=== PATIENT | male | born 1950 | race Caucasian/White ===

== ENCOUNTER 2016-08-16 06:13 | Inpatient (IN) ==
[2016-08-09 13:08] LABS: Appearance,Urine CLEAR; Bilirubin,Urine NEG (NEG); Color,Urine YELLOW; Glucose,Urine (UA) 150 mg/dL (NEG); Leukocyte Esterase,Urine NEG /uL (NEG); Nitrate,Urine NEG (NEG); Protein,Urine NEG (NEG); Specific Gravity,Urine 1.023 (1.000-1.035); Urine Blood NEG mg/dL (<0.03); Urobilinogen,Urine NEG (NEG)
[2016-08-09 15:26] LABS: Basophils # (Auto) 0.1 K/mcL (0.0-0.3); Basophils % (Auto) 0.6 % (0.0-2.0); Eosinophils # (Auto) 0.6 K/mcL (0.0-0.7); Eosinophils % (Auto) 5.8 % (0.0-7.0); Granulocytes % (Auto) 70.2 % (38.0-78.0); Lymphocytes # (Auto) 1.8 K/mcL (1.5-4.8); Lymphocytes % (Auto) 18.9 % (15.5-49.0); Mean Cell Volume 95.6 fL (80.0-100.0); Mean Corpuscular HGB Conc 32.2 g/dL (31.0-36.0); Mean Corpuscular Hemoglobin 30.8 pg (26.0-34.0); Monocytes # (Auto) 0.4 K/mcL (0.1-0.9); Monocytes % (Auto) 4.5 % (1.0-9.0); Platelet Count 311 K/mcL (140-440); Red Cell Distribution Width 13.9 % (11.5-14.5)
[2016-08-09 15:34] LABS: ALT/SGPT 15 U/l (0-40); Albumin 4.3 gm/dL (3.2-5.2); Alkaline Phosphatase 38 U/L (39-117); Blood Urea Nitrogen 15 mg/dl (8-23)
[~2016-08-16 06:13] MED LIST: ceFAZolin 1 GM VIAL IV SCH
[2016-08-16] MEDS ORDERED: IPRATROPIUM/ALBUTEROL 3 ML AMPUL.NEB NEB ONE (07:27)
[2016-08-16] MEDS ORDERED: SUCCINYLCHOLINE 20 MG/ML ML IV ONE (07:45)
[2016-08-16] MEDS ORDERED: GLYCOPYRROLATE 0.2 MG/ML VIAL IV ONE (07:45)
[2016-08-16] MEDS ORDERED: NALOXONE HCL 0.4 MG/ML VIAL IV ONE (07:45)
[2016-08-16] MEDS ORDERED: PHENYLEPHRINE 10 MG/ML VIAL IV ONE (07:45)
[2016-08-16] MEDS ORDERED: fentaNYL 250 MCG/5 ML VIAL IV ONE (07:45)
[2016-08-16] MEDS ORDERED: PROPOFOL 200 MG/20 ML VIAL IV ONE (07:45)
[2016-08-16] MEDS ORDERED: NEOSTIGMINE 1 MG/ML VIAL IV ONE (07:45)
[2016-08-16] MEDS ORDERED: DEXAMETHASONE 10 MG/ML VIAL IV ONE (07:45)
[2016-08-16] MEDS ORDERED: ONDANSETRON 4 MG/2 ML VIAL IV ONE (07:45)
[2016-08-16] MEDS ORDERED: MIDAZOLAM 5 MG/5 ML VIAL IV ONE (07:45)
[2016-08-16] MEDS ORDERED: LIDOCAINE HCL/PF 100 MG/5 ML SYRINGE IV ONE (07:45)
[2016-08-16] MEDS ORDERED: HYDROmorphone 2 MG/ML SYRINGE IV ONE (07:45)
[2016-08-16] MEDS ORDERED: KETAMINE 100 MG/ML ML IV ONE (07:45)
[2016-08-16] MEDS ORDERED: GELATIN SPONGE,ABSORBABLE 1 GM POWDER TOPICAL ONE (08:12)
[2016-08-16] MEDS ORDERED: THROMBIN (BOVINE) 5,000 UNIT VIAL TOPICAL ONE (08:12)
[2016-08-16] MEDS ORDERED: GELATIN SPONGE,ABSORBABLE 1 EACH SPONGE TOPICAL ONE (08:12)
[2016-08-16] MEDS ORDERED: diphenhydrAMINE 50 MG/ML VIAL IV PRN (09:15)
[2016-08-16] MEDS ORDERED: FLUMAZENIL 0.1 MG/ML ML IV PRN (09:15)
[2016-08-16] MEDS ORDERED: IPRATROPIUM/ALBUTEROL 3 ML AMPUL.NEB NEB PRN (09:15)
[2016-08-16] MEDS ORDERED: NALOXONE HCL 0.4 MG/ML VIAL IV PRN ×2 (09:15→14:54)
[2016-08-16] MEDS ORDERED: METHOCARBAMOL 1,000 MG/10 ML VIAL IV PRN (09:15)
[2016-08-16] MEDS ORDERED: LACTATED RINGERS 250 ML IV PRN (09:15)
[2016-08-16] MEDS ORDERED: BENZOCAINE/MENTHOL 1 LOZENGE PO PRN (09:15)
[2016-08-16] MEDS ORDERED: ONDANSETRON 4 MG/2 ML VIAL IV PRN ×2 (09:15→14:54)
[2016-08-16] MEDS ORDERED: MEPERIDINE 25 MG/ML SYRINGE IV PRN (09:15)
[2016-08-16] MEDS ORDERED: PROMETHAZINE 25 MG/ML VIAL IV PRN ×2 (09:15→14:54)
[2016-08-16] MEDS ORDERED: ePHEDrine 50 MG/ML AMPUL IV PRN (09:15)
[2016-08-16] MEDS ORDERED: LACTATED RINGERS 1,000 ML IV SCH (09:15)
[2016-08-16] MEDS ORDERED: METOCLOPRAMIDE 10 MG/2 ML VIAL IV PRN (09:15)
[2016-08-16] MEDS ORDERED: GUM MASTIC/STORAX/MSAL/ALCOHOL 1 DOSE DROPERETTE TOPICAL ONE (09:50)
[2016-08-16] MEDS ORDERED: BUPIVACAINE 0.25% 50 ML VIAL IJ ONE (10:08)
[2016-08-16] MEDS ORDERED: HYDROcodone/APAP 10/325MG TABLET PO PRN (10:09)
[2016-08-16] MEDS ORDERED: TRANEXAMIC ACID 1,000 MG/10 ML VIAL IV ONE (10:09)
[2016-08-16] MEDS: fentaNYL 100 MCG/2 ML VIAL IV PRN ×4 (11:10→11:30)
[2016-08-16] MEDS: HYDROmorphone 2 MG/ML SYRINGE IV PRN ×4 (11:15→11:49)
[2016-08-16] MEDS ORDERED: ACETAMINOPHEN 1,000 MG/100 ML BOTTLE IV ONE (12:05)
--- NOTE | 2016-08-16 12:39 | Brief Operative Note ---
Date of procedure: 08/16/16 Pre-op diagnosis: stenosis with disc herniation Post-op diagnosis: same Procedure: decompression l4/5 plus far lateral discectomy Grafts/Implants: No Anesthesia: GETA Findings: herniation extraforaminal Complications: none Surgeon: Gerald Kenyon Purse Seiner: Sheldon Bravo Estimated blood loss (cc): 30 Specimens Removed/Pathology: none sent Condition: stable Disposition: PACU
--- NOTE | 2016-08-16 13:41 | XRay Report ---
CLINICAL INFORMATION: Hypoxia COMPARISON: 10/29/2010 FINDINGS: Heart size, mediastinum and pulmonary vessels are normal. Few tiny densely calcified granulomas in the perihilar region seen - as before. There are no significant pulmonary abnormality - only minor atelectasis in the left base IMPRESSION: No acute disease Interpreted and Authenticated by: Joshua Rondon 08/16/16
[2016-08-16] MEDS ORDERED: 0.9 % SODIUM CHLORIDE 10 ML SYRINGE IV SCH ×2 (14:00→22:00)
[2016-08-16] MEDS ORDERED: ACETAMINOPHEN 325 MG TABLET PO PRN (14:54)
[2016-08-16] MEDS ORDERED: FLEETS ADULT ENEMA PR PRN (14:54)
[2016-08-16] MEDS ORDERED: HYDROmorphone 2 MG/ML SYRINGE IV PRN (14:54)
[2016-08-16] MEDS ORDERED: SENNOSIDES 1 TABLET PO PRN (14:54)
[2016-08-16] MEDS ORDERED: DEXTROSE 50% 50 ML VIAL IV PRN (15:05)
[2016-08-16] MEDS ORDERED: AZITHROMYCIN 250 MG TABLET PO ONE (15:05)
--- NOTE | 2016-08-16 15:46 | Internal Med History&Physical ---
Medical - H&P: HPI Patient information: Note initiated : 08/16/16 at 3:43 pm Service Date, if different from initiated Date: [] Patient: Subhash Mccormack 65 y/o M admitted on 08/16/16 for L4-5 Central Decompression Possible Far Lateral. Chief Complaint: [] History of present illness: Mr. Mccormack is a 65 year old male with h/o dm, copd, htn, hld, bph, chr back pain, was having a lower back surgery today. l4,l5 lamenctomy for disc prolapse. After the procedure, the patient was a difficult extubation, after extubation the patient contined to be short of breath, wheezing. and needed BIPAP support, the patient had a Blood gas drawn which shwed acute respiratory acidosis. Medicine was there fore asked to evaluate the patient for further management. The patient on my eval was on bipap, improving mentation, but still short of breath. He was on 15/8 setting, good staturations, and having good tidal volues. The patient notes the he is a smoker, takes spiriva and uses albuterol 2 times a week, no recent hospitalization or use of steroids for copd. He was in his usual state of health before the procedure. EKG done reviewed, unchanged from previous X ray chest reviewed, no gross infiltrated noted. ABG/ serial abgs reviewed, - Constitutional Constitutional: Absent: chills, fatigue, fever(s) - EENT Eyes: Absent: change in vision, diplopia Nose, mouth and throat: Absent: disequilibrium, vertigo - Cardiovascular Cardiovascular: Absent: chest pain, palpatations, syncope - Respiratory Respiratory: Present: dyspnea, dyspnea on exertion, wheezing - Gastrointestinal Gastrointestinal: Absent: abdominal pain, nausea, vomiting - Genitourinary Genitourinary: Absent: difficulty urinating, hematuria - Musculoskeletal Musculoskeletal: Present: back pain - Neurological Neurological: Absent: focal weakness, headache(s), vertigo, weakness - Psychiatric Psychiatric: Present: confusion. Absent: anxiety - Endocrine Endocrine: Absent: polydipsia, polyphagia, polyuria - Hematologic/Lymphatic Hematologic/Lymphatic: Absent: easy bleeding, easy bruising - Allergic/Immunologic Allergic/Immunologic: Present: wheezing. Absent: lip swelling Medical - H&P: PMH Medical history: Medical History Spinal stenosis at L4-L5 level (Acute) DM, HTN, HLD< BPH, chr pain, copd, neuropathy Surgical history: Medical History Spinal stenosis at L4-L5 level (Acute) right knee arthroscopy Pertinent family history: h/o clots, hemophilia, cad, cancer in father mother has rheumatoid arthritis, htn, dm, cad Social history: smoker social etoh no recreational drugs lives at home.retired. Medical - H&P: Meds Home Medications Medication Instructions Recorded Confirmed Type Coq10 100 mg PO BID 04/03/16 08/09/16 History Doxycycline Hyclate [Vibramycin] 100 mg PO BID 04/03/16 08/09/16 History Fenofibrate,Micronized 134 mg PO DAILY 04/03/16 08/09/16 History [Fenofibrate] Finasteride [Proscar] 5 mg PO DAILY 04/03/16 08/09/16 History Fish Oil 1 tab PO BID 04/03/16 08/09/16 History Lisinopril [Zestril] 5 mg PO DAILY 04/03/16 08/09/16 History Mecobal/Levomefolat Ca/B6 Phos 2 tablet PO DAILY 04/03/16 08/09/16 History [Foltanx Tablet] Omeprazole [PriLOSEC] 20 mg PO ACB 04/03/16 08/09/16 History Oxybutynin Chloride [Ditropan Xl] 10 mg PO DAILY 04/03/16 08/09/16 History Simvastatin [Zocor] 40 mg PO HS 04/03/16 08/09/16 History Tadalafil [Cialis] 5 mg PO DAILY 04/03/16 08/09/16 History Tiotropium [place] [Spiriva] 18 mcg INH DAILY 04/03/16 08/16/16 History metFORMIN [Glucophage] 500 mg PO BID 04/03/16 08/09/16 History HYDROcodone/ACETAMINOPHEN 1 each PO Q4-6HP PRN 08/09/16 08/09/16 History [Hydrocodon-Acetaminophn 10-325] Methocarbamol [Robaxin] 750 mg PO TID 08/09/16 08/09/16 History Pregabalin [Lyrica] 75 mg PO BID 08/09/16 08/09/16 History Vitamin D3 5,000 unit PO DAILY 08/09/16 08/09/16 History Allergies Allergy/AdvReac Type Severity Reaction Status Date / Time povidone-iodine Allergy Intermediate Rash Verified 08/09/16 10:02 [From Betadine] soap [From Betadine] Allergy Intermediate Rash Verified 08/09/16 10:02 Medical - H&P: Exam - Constitutional Vitals: Temp Pulse Resp BP Pulse Ox 97.6 F 98 H 19 133/70 97 08/16/16 15:00 08/16/16 15:01 08/16/16 15:01 08/16/16 15:00 08/16/16 15:01 General appearance: cooperative, mild distress, obese - Head Head exam: Present: atraumatic, normal inspection, normocephalic - Eye Eye exam: Present: PERRL. Absent: periorbital swelling, periorbital tenderness , scleral icterus - ENT ENT exam: Present: mucous membranes dry - Neck Neck exam: Present: normal inspection - Respiratory Respiratory exam: Present: respiratory distress (mild), wheezes. Absent: accessory muscle use - Cardiovascular Cardiovascular exam: Present: normal rate and rhythm, +S1, +S2 - GI/Abdominal GI/Abdominal exam: Present: normal bowel sounds, soft. Absent: firm, guarding, rigid, tenderness - Extremities Exam Extremities exam: Present: Foot pink and warm. Absent: pedal edema - Back Exam Additional comments: lower back in dressing, rest normal to inspection - Neurological Exam Neurological exam: Present: alert, CN II-XII intact, oriented X3. Absent: motor sensory deficit - Psychiatric Psychiatric exam: Absent: agitated, anxious - Skin Skin exam: Present: intact. Absent: rash, urticaria Medical - H&P: Reslt - Labs CBC & Chem 7: 08/09/16 10:41 08/09/16 10:41 Medical - H&P: A/P (1) Acute respiratory failure with hypoxia and hypercapnia Current visit: Yes Status: Acute (2) Chronic obstructive asthma with exacerbation Current visit: Yes Status: Acute (3) Diabetes mellitus Current visit: Yes Status: Acute (4) Essential hypertension Current visit: Yes Status: Acute (5) BPH (benign prostatic hyperplasia) Current visit: Yes Status: Acute (6) Chronic pain Current visit: Yes Status: Acute (7) Hyperlipidemia Current visit: Yes Status: Acute - Narrative A/P Narrative: this is a 65 yr male who was in otherwise good health, had copd flare up with acute hypoxic and hypercapenic respiratory failure after a surgical procedure. The patient likely over reacted to some inhalant used during surgery or some medication. Patient will be treated with bipap for now, if does not respond will intubate the patient, but it seems that the patient is slowly improving. IV steroids, po zithromax, DUonebx q 4 hrs for now, X ray is neg, ekg unchanged , ABG in 1 hr to determine progress. COtinue home meds, hold metformin for now, use sliding scale isulin Diet diabetic DVT scd for now given recent spine surgery. Code full Dispo- anticipate home d/c once acute flare up resolved Condition, critical Time spent with the patient 1 hr reviewing chart and coordinating care, managed bipap, abg, labs, total critical care time spent 40 mins.
[2016-08-16] MEDS: methylPREDNISolone SOD SUCC 125 MG/2 ML VIAL IV SCH ×2 (15:47→20:36)
[2016-08-16 15:55] LABS: Mean Cell Volume 96.2 fL (80.0-100.0); Mean Corpuscular HGB Conc 31.4 g/dL (31.0-36.0); Mean Corpuscular Hemoglobin 30.2 pg (26.0-34.0); Platelet Count 303 K/mcL (140-440); RBC 5.11 M/mcL (4.50-5.90); Red Cell Distribution Width 13.4 % (11.5-14.5)
--- NOTE | 2016-08-16 16:03 | XRay Report ---
CLINICAL INFORMATION: Lumbar decompression - localization COMPARISON: Lumbar spine CT from 04/03/2016. FINDINGS: AP and lateral digital images are submitted. Lateral images show metallic probe overlying the inferior L4 facet at approximately the L4-5 disc level. AP view shows metallic probe overlying the right L4-5 disc level IMPRESSION: Metallic probe overlying the L4-5 disc level Interpreted and Authenticated by: Joshua Rondon 08/16/16
[2016-08-16] MEDS: IPRATROPIUM/ALBUTEROL 3 ML AMPUL.NEB NEB SCH ×3 (16:06→22:44)
[2016-08-16 16:17] LABS: ALT/SGPT 19 U/l (0-40); Albumin 4.2 gm/dL (3.2-5.2); Albumin/Globulin Ratio 1.5 (1.0-2.3); Alkaline Phosphatase 38 U/L (39-117); Bilirubin,Direct < 0.2 mg/dL (0.0-0.3); Blood Urea Nitrogen 16 mg/dl (8-23); Gamma Glutamyl Transpeptidase 26 U/L (8-61); Magnesium 1.9 mg/dL (1.6-2.5); Phosphorous 4.6 mg/dL (2.7-4.5); Uric Acid 5.7 mg/dL (2.5-8.0)
[2016-08-16 16:43] LABS: Lymphocytes % 6 % (15-49); Monocytes % (Manual) 1 % (1-9); Platelet Estimate NORMAL (NORMAL); RBC Morphology B (NORMAL); Segmented Neutrophils % 93 % (38-78)
[2016-08-16] MEDS: INSULIN LISPRO 1 UNIT/0.01 ML UNIT SQ SCH ×2 (17:33→20:35)
[2016-08-16] MEDS: HYDROcodone/APAP 10/325MG TABLET PO PRN ×2 (18:56→22:28)
[2016-08-16] MEDS ORDERED: HYDROcodone/APAP 10/325MG TABLET PO ONE (19:08)
[2016-08-16] MEDS: PREGABALIN 75 MG CAPSULE PO SCH (20:35)
[2016-08-16] MEDS: SIMVASTATIN 40 MG TABLET PO SCH (20:35)
[2016-08-16] MEDS: FAMOTIDINE/PF 20 MG/2 ML VIAL IV SCH (20:36)
[2016-08-16] MEDS: 0.9 % SODIUM CHLORIDE 10 ML SYRINGE IV SCH (20:36)
[2016-08-16] MEDS: CHLORHEXIDINE GLUCONATE 1 ML ORAL.SOL SWABMOUTH SCH (20:36)
[2016-08-17] MEDS: IPRATROPIUM/ALBUTEROL 3 ML AMPUL.NEB NEB SCH ×6 (02:42→23:09)
[2016-08-17] MEDS: HYDROcodone/APAP 10/325MG TABLET PO PRN ×4 (02:42→22:59)
[2016-08-17] MEDS: methylPREDNISolone SOD SUCC 125 MG/2 ML VIAL IV SCH ×3 (05:01→21:57)
[2016-08-17] MEDS: 0.9 % SODIUM CHLORIDE 10 ML SYRINGE IV SCH ×3 (05:01→22:00)
[2016-08-17] MEDS: INSULIN LISPRO 1 UNIT/0.01 ML UNIT SQ SCH ×4 (07:07→21:56)
[2016-08-17 07:32] LABS: Basophils # (Auto) 0 K/mcL (0.0-0.3); Basophils % (Auto) 0.1 % (0.0-2.0); Eosinophils # (Auto) 0 K/mcL (0.0-0.7); Eosinophils % (Auto) 0 % (0.0-7.0); Granulocytes % (Auto) 87.9 % (38.0-78.0); Lymphocytes # (Auto) 1.1 K/mcL (1.5-4.8); Lymphocytes % (Auto) 8.2 % (15.5-49.0); Mean Cell Volume 96.1 fL (80.0-100.0); Mean Corpuscular Hemoglobin 30.7 pg (26.0-34.0); Monocytes # (Auto) 0.5 K/mcL (0.1-0.9); Monocytes % (Auto) 3.8 % (1.0-9.0); Platelet Count 293 K/mcL (140-440); Red Cell Distribution Width 13.3 % (11.5-14.5)
--- NOTE | 2016-08-17 07:49 | Orthopedic Progress Note ---
Subjective Patient information: Note initiated : 08/17/16 at 7:47 am Service Date, if different from initiated Date: [] Patient: Subhash Mccormack 65 y/o M admitted on 08/16/16 for L4-5 Central Decompression Possible Far Lateral. Chief Complaint: [] Principal diagnosis: lumbar stenosis Objective Vital signs: Vital Signs Temp Pulse Pulse Resp BP BP Pulse Ox 08/17/16 07:20 79 13 08/17/16 07:00 97.8 F 77 14 114/60 94 08/17/16 06:33 77 08/17/16 06:00 97.8 F 89 20 108/49 94 08/17/16 05:00 92 H 20 124/71 84 L 08/17/16 04:00 97.9 F 90 16 132/68 93 08/17/16 03:00 83 13 124/59 08/17/16 02:00 83 14 121/56 95 08/17/16 01:00 90 88 15 113/51 93 08/17/16 00:00 97.8 F 101 H 19 113/60 97 08/16/16 23:00 91 H 14 127/69 08/16/16 22:46 88 16 08/16/16 22:00 93 H 20 124/62 93 08/16/16 21:00 99 H 24 131/72 08/16/16 20:00 97.9 F 106 H 20 132/72 94 08/16/16 19:31 88 20 08/16/16 19:00 20 122/72 94 08/16/16 18:00 106 H 20 93 08/16/16 17:00 89 16 127/68 96 08/16/16 16:19 98 H 12 97 08/16/16 16:08 94 H 11 L 08/16/16 16:00 97.9 F 93 H 16 124/78 97 08/16/16 15:01 98 H 19 97 08/16/16 15:00 97.6 F 98 H 133/70 93 08/16/16 14:45 96.9 F L 12 134/78 97 08/16/16 14:13 98.0 F 99 H 15 134/75 94 08/16/16 13:55 101 H 16 137/78 96 08/16/16 13:42 101 H 14 135/71 95 08/16/16 13:30 96 H 12 140/70 95 08/16/16 13:27 101 H 12 95 08/16/16 13:21 102 H 14 143/67 95 08/16/16 13:06 100 H 16 152/82 93 08/16/16 12:50 103 H 13 145/74 95 08/16/16 12:48 104 H 21 96 08/16/16 12:40 103 H 16 159/88 95 08/16/16 12:30 102 H 10 L 159/88 98 08/16/16 12:20 99 H 15 162/80 99 08/16/16 12:10 100 H 14 178/75 82 L 08/16/16 12:05 103 H 105 H 18 169/52 83 L 08/16/16 12:00 98.0 F 106 H 18 144/67 81 L 08/16/16 11:56 98.0 F 105 H 16 141/70 92 08/16/16 11:43 105 H 15 145/76 92 08/16/16 11:39 105 H 16 143/77 94 08/16/16 11:38 103 H 20 144/76 92 08/16/16 11:22 103 H 19 120/73 94 08/16/16 11:15 104 H 18 152/66 96 08/16/16 11:10 108 H 23 140/84 94 08/16/16 11:05 108 H 15 118/63 96 08/16/16 11:01 97.3 F L 25 L 25 H 156/69 93 Intake and Output 08/16/16 08/17/16 08/17/16 21:59 05:59 13:59 Intake Total 940 / 940 Output Total 1075 / 1075 600 / 600 300 / 300 Balance -135 / -135 -600 / -600 -300 / -300 Intake: Oral 940 / 940 Output: Void Amount 1075 / 1075 600 / 600 300 / 300 Other: Meal Dinner Percent of Meal Consumed 100% Feeding Ability Assist with Tray Set Up Weight 256 lb 11.2 oz Intake & Output: Intake & Output 08/16/16 08/17/16 08/17/16 21:59 05:59 13:59 Intake Total 940 / 940 Output Total 1075 / 1075 600 / 600 300 / 300 Balance -135 / -135 -600 / -600 -300 / -300 Weight 256 lb 11.2 oz Intake: Oral 940 / 940 Output: Void Amount 1075 / 1075 600 / 600 300 / 300 Other: Meal Dinner Percent of Meal Consumed 100% Feeding Ability Assist with Tray Set Up Incision: Yes clean and dry Dressing: Yes intact Weight bearing status: as tolerated Neurological exam IM: Yes neurovascular intact - Labs CBC & BMP: 08/17/16 06:20 08/16/16 15:10 Labs: Orthopedic Labs 08/09/16 10:41 PT 12.4 INR 0.9 08/17/16 08/16/16 08/09/16 06:20 15:10 10:41 Hgb 14.8 15.4 15.4 Hct 46.1 49.2 47.8 Assessment and Plan (1) Spinal stenosis at L4-L5 level complicated by respiratory difficulty D/C when respiratory problems resolved D/C drain today Status: Acute
[2016-08-17 08:11] LABS: ALT/SGPT 17 U/l (0-40); Albumin 4.1 gm/dL (3.2-5.2); Albumin/Globulin Ratio 1.9 (1.0-2.3); Alkaline Phosphatase 35 U/L (39-117); Bilirubin,Direct < 0.2 mg/dL (0.0-0.3); Blood Urea Nitrogen 16 mg/dl (8-23); Gamma Glutamyl Transpeptidase 25 U/L (8-61); Phosphorous 3.3 mg/dL (2.7-4.5)
--- NOTE | 2016-08-17 09:18 | Operative Note ---
DATE OF OPERATION: 08/16/2016 PREOPERATIVE DIAGNOSIS: Lumbar stenosis L4-L5 with also an extruded fragment in extraforaminal region L4-L5. POSTOPERATIVE DIAGNOSIS: Lumbar stenosis L4-L5 with also an extruded fragment in extraforaminal region L4-L5. OPERATION PROPOSED: 1. Lumbar decompression with decompression, lateral recess, and opening of the neural foramen as well as the central canal at L4-L5. 2. Extraforaminal diskectomy L4-L5 through a second surgical approach. OPERATION PERFORMED: Right hip hemiarthroplasty. OPERATING SURGEON: Gerald Kenyon MD [employer]ENDING [employer]IVITIES SUPERVISOR: Sheldon Bravo PA-C INDICATIONS: A gentleman who has had intractable radicular pain. He has failed conservative measures and we have elected to proceed with a lumbar decompression. We have also elected to excise a foraminal disc herniation as well. OPERATION IN DETAIL: Informed consent was obtained. He was taken to the operating room and he was provided with appropriate anesthetic and prophylactic antibiotics. A midline incision was made. I dissected down along the spinous process and lamina of L4 and L5. I placed a self-retaining retractor. I then under fluoroscopic guidance advanced a tubular retractor through a separate incision to the extra foraminal region L4-L5. The position of our dissectors and retractors was confirmed under fluoroscopy. I then used a high speed bur. I removed the anterior one half of the spinous process and lamina of L4 and superior portion leaving the edge of L5 using a high speed bur, a variety of curettes and Kerrison punches. I debrided ligamentum flavum and carried this distraction across the midline. At the end of the decompression, the central canal, lateral recess, and opening of the neural foramen were very adequately patent. I then turned my attention to this extraforaminal diskectomy. A separate incision and separate ____ had been placed. I brought in the operating microscope and I curetted beneath the part of articularis of L4 and then along the transverse process of L5 and the superior articular process of L5. I used a Kerrison punch to debride a small amount of lateral bone. I worked my way from them going over the transverse process and this thin membrane was debrided. I mobilized the nerve root cephalad and laterally. There was significant herniated material that was identified and removed. The wounds were irrigated thoroughly at the end of the decompression. Central canal at the opening of the neural foramen seemed very adequately patent. The wounds were irrigated thoroughly. I closed with 0 Vicryl in interrupted fashion, 2-0 Vicryl inverted deep dermal, and running subcuticular. No complications of the procedure. Estimated blood loss 50 mL. GDD:cyndie Job ID: [id number] Doc ID: [id number] Gerald Kenyon MD
[2016-08-17] MEDS: B6 PHOS PO SCH (09:21)
[2016-08-17] MEDS: MECOBAL PO SCH (09:21)
[2016-08-17] MEDS: LEVOMEFOLAT CA PO SCH (09:21)
[2016-08-17] MEDS: CHLORHEXIDINE GLUCONATE 1 ML ORAL.SOL SWABMOUTH SCH ×2 (09:23→21:57)
[2016-08-17] MEDS: FAMOTIDINE/PF 20 MG/2 ML VIAL IV SCH ×2 (09:26→21:57)
[2016-08-17] MEDS: AZITHROMYCIN 250 MG TABLET PO SCH (09:26)
[2016-08-17] MEDS: PREGABALIN 75 MG CAPSULE PO SCH ×2 (09:39→22:59)
[2016-08-17] MEDS: FENOFIBRATE 43 MG CAPSULE PO SCH (09:39)
[2016-08-17] MEDS: LISINOPRIL 5 MG TABLET PO SCH (09:39)
[2016-08-17] MEDS: CELECOXIB 200 MG CAPSULE PO SCH ×2 (09:39→22:59)
[2016-08-17] MEDS: FINASTERIDE 5 MG TABLET PO SCH (09:39)
[2016-08-17] MEDS: OXYBUTYNIN CHLORIDE 5 MG TAB.XL.24H PO SCH (09:39)
--- NOTE | 2016-08-17 12:15 | Internal Med Progress Note ---
Medical - PN: Subj Patient information: Note initiated : 08/17/16 at 12:12 pm Service Date, if different from initiated Date: [] Patient: Subhash Mccormack 65 y/o M admitted on 08/16/16 for L4-5 Central Decompression Possible Far Lateral. Chief Complaint: [] Interval history: The patient seen examined, overnight events noted no acute complaints pain ok now, but needed q 4 pain meds overnight. Ok to use celebrex as per Neuro surgery if needed. Patient was on bipap till 3 am then transitioned to nasal canula, had done since then ABG this morning showed normal Ph and acidosis resolved. Pertinent ROS: Denies headache, dizziness Denies chest pain, palpitations Denies cough or shortness of breath Denies abdominal pain, nausea or vomiting. - Constitutional Vitals: Vital Signs Temp Pulse Resp BP Pulse Ox 98.1 F 84 12 120/67 92 08/17/16 09:00 08/17/16 11:15 08/17/16 11:15 08/17/16 11:00 08/17/16 11:00 Period Temp Pulse Resp BP Sys/[place]erc[place] Pulse Ox Last 24 Hr 96.9 F-98.1 F 77-106 10-24 108-162/49-88 84-99 Intake and Output 08/16/16 08/17/16 08/17/16 21:59 05:59 13:59 Intake Total 940 / 940 809 / 809 Output Total 1075 / 1075 600 / 600 718 / 718 Balance -135 / -135 -600 / -600 Weight 256 lb 11.2 oz Intake & Output: Intake & Output 08/16/16 08/17/16 08/17/16 21:59 05:59 13:59 Intake Total 940 / 940 809 / 809 Output Total 1075 / 1075 600 / 600 718 / 718 Balance -135 / -135 -600 / -600 91 / 91 Weight 256 lb 11.2 oz Intake: IV 449 / 449 Oral 940 / 940 360 / 360 Output: Drainage 18 / 18 Lower Back 18 Void Amount 1075 / 1075 600 / 600 700 / 700 Other: Meal Dinner Breakfast Percent of Meal Consumed 100% 100% Feeding Ability Assist with Tray Set Up Independent Exam: Constitutional; Afebrile, cooperative, alert, not in distress. Eyes- No icterus, Pupils equal, reactive, No periorbital swelling Ears- Ext ear normal, hearing normal to conversation. Neck- Midline trachea, supple Respiratory system: Air Entry equal on both sides, No crackles, prolonged exp phase, no wheezing. CVS- Rate rhythm regular, S1,S2 heard, no gallop, no rub. Abdomen- Soft nontender abdomen, no organomegaly, no tenderness, no guarding or rigidity, [employer]- AOOx3, moving all extremities, no focal deficit noted. Medical - PN: Obj Da - Labs CBC & Chem 7: 08/17/16 06:20 08/17/16 06:20 Labs: Abnormal Lab Results 08/17/16 08/17/16 08/16/16 06:20 06:20 15:10 WBC 13.4 H Gran % 87.9 H Lymph % (Auto) 8.2 L Gran # 11.8 H Lymph # 1.1 L Seg Neutrophils % Lymphocytes % Glucose 155 H 153 H Phosphorus 4.6 H Alkaline Phosphatase 35 L 38 L Triglycerides 159 H 168 H 08/16/16 15:10 WBC 12.6 H Gran % Lymph % (Auto) Gran # Lymph # Seg Neutrophils % 93 H Lymphocytes % 6 L Glucose Phosphorus Alkaline Phosphatase Triglycerides Meds: Medications Acetaminophen (Tylenol) 650 mg PO Q4-6HP PRN PRN Reason: PAIN/FEVER > 101 Acetaminophen/Hydrocodone Bitart ([place] 10/325mg) 1 tab PO Q4-6HP PRN PRN Reason: Pain Last Admin: 08/17/16 07:00 Dose: 1 tab Albuterol/Ipratropium (Duoneb) 3 ml NEB Q4HRT [facility] Last Admin: 08/17/16 11:14 Dose: 3 ml Azithromycin (Zithromax) 250 mg PO DAILY [facility] Stop: 08/20/16 09:01 Last Admin: 08/17/16 09:26 Dose: 250 mg Celecoxib (Celebrex) 200 mg PO BID [facility] Last Admin: 08/17/16 09:39 Dose: 200 mg Chlorhexidine Gluconate (Peridex) 15 ml [place]OUTH BID [facility] Last Admin: 08/17/16 09:23 Dose: 15 ml Dextrose (Dextrose 50%) 0 ml IV UD PRN PRN Reason: Hypoglycemia Diagnostic Test (Pha) (Accu-Chek) 1 each FS ACHS [facility] Last Admin: 08/17/16 12:02 Dose: 1 each Famotidine (Pepcid) 20 mg IV Q12 [facility] Last Admin: 08/17/16 09:26 Dose: 20 mg Fenofibrate (Antara) 129 mg PO DAILY [facility] Last Admin: 08/17/16 09:39 Dose: 129 mg Finasteride (Proscar) 5 mg PO DAILY [facility] Last Admin: 08/17/16 09:39 Dose: 5 mg Heparin Sodium (Porcine) (Heparin) 5,000 unit SQ Q12 [facility] Insulin Human Lispro (Humalog) 0 unit SQ [facility] PRN Reason: Protocol Last Admin: 08/17/16 07:07 Dose: 1 unit Lisinopril (Zestril) 5 mg PO DAILY [facility] Last Admin: 08/17/16 09:39 Dose: 5 mg Methylprednisolone Sodium Succinate (Solu-Medrol) 62.5 mg IV Q8 [facility] Last Admin: 08/17/16 05:01 Dose: 62.5 mg Naloxone HCl (Narcan) 0.1 mg IV Q2MIN PRN PRN Reason: Opiate Reversal Ondansetron HCl (Zofran) 4 mg IV Q4-6HP PRN PRN Reason: Nausea And Vomiting Oxybutynin Chloride (Ditropan Xl) 10 mg PO DAILY [facility] Last Admin: 08/17/16 09:39 Dose: 10 mg Mecobal/Levomefolat Ca/B6 Phos [Foltanx Tablet] Tabs 2 dose PO DAILY [facility] Last Admin: 08/17/16 09:21 Dose: Not Given Pregabalin (Lyrica) 75 mg PO BID [facility] Last Admin: 08/17/16 09:39 Dose: 75 mg Promethazine HCl (Phenergan) 12.5 mg IV Q4-6HP PRN PRN Reason: Nausea And Vomiting Senna (Senokot) 2 tab PO HSP PRN PRN Reason: Constipation Simvastatin (Zocor) 40 mg PO HS [facility] Last Admin: 08/16/16 20:35 Dose: 40 mg Sodium Biphosphate/Sodium Phosphate (Fleets Adult) 1 dose AR Q3-4DAYS PRN PRN Reason: Constipation Sodium Chloride (Saline Flush) 10 ml IV Q8 [facility] Last Admin: 08/17/16 12:02 Dose: 10 ml Medical - PN: A/P - Time Spent With Patient Total time spent is greater than 50% in coordination of care (as documented) at patient's floor/unit and/or counseling patient: (1) Acute respiratory failure with hypoxia and hypercapnia Status: Acute Current Visit: Yes (2) Chronic obstructive asthma with exacerbation Status: Acute Current Visit: Yes (3) Diabetes mellitus Status: Acute Current Visit: Yes (4) Essential hypertension Status: Acute Current Visit: Yes (5) Chronic pain Status: Acute Current Visit: Yes - Narrative A/P Narrative: -The patient is doing well presently on 2 L nc continue same -BIPAP stand by, CPAP at night for his IVAN - Continue dunoebs, steroids and abx for now - if remains stable, can be d/c home tomorrow in AM. - OK to transfer to med surg status this evening if patient remains stable with stable oxygen requirements and low risk of relapse. He will still need to continue his home cpap at night. DVT hep sq starting later today, SCD Ok to d/c as per neurosurgery. . Medical - PN: Qual - VTE Deep Vein Thrombosis/Pulmonary Embolism Present on Admission: Yes
[2016-08-17] MEDS: HEPARIN 5,000 UNIT/ML VIAL SQ SCH (21:57)
[2016-08-17] MEDS: SIMVASTATIN 40 MG TABLET PO SCH (22:59)
[2016-08-18] MEDS: IPRATROPIUM/ALBUTEROL 3 ML AMPUL.NEB NEB SCH ×6 (03:31→23:23)
[2016-08-18] MEDS: methylPREDNISolone SOD SUCC 125 MG/2 ML VIAL IV SCH (05:42)
[2016-08-18] MEDS: HYDROcodone/APAP 10/325MG TABLET PO PRN (05:43)
[2016-08-18] MEDS: 0.9 % SODIUM CHLORIDE 10 ML SYRINGE IV SCH ×3 (05:43→22:22)
[2016-08-18 06:01] LABS: Basophils # (Auto) 0 K/mcL (0.0-0.3); Basophils % (Auto) 0.1 % (0.0-2.0); Eosinophils # (Auto) 0.1 K/mcL (0.0-0.7); Eosinophils % (Auto) 0.3 % (0.0-7.0); Granulocytes % (Auto) 91.2 % (38.0-78.0); Lymphocytes # (Auto) 1.1 K/mcL (1.5-4.8); Lymphocytes % (Auto) 6.5 % (15.5-49.0); Mean Cell Volume 95.3 fL (80.0-100.0); Mean Corpuscular HGB Conc 31.8 g/dL (31.0-36.0); Mean Corpuscular Hemoglobin 30.3 pg (26.0-34.0); Monocytes # (Auto) 0.3 K/mcL (0.1-0.9); Monocytes % (Auto) 1.9 % (1.0-9.0); Platelet Count 310 K/mcL (140-440); RBC 4.72 M/mcL (4.50-5.90); Red Cell Distribution Width 13.6 % (11.5-14.5)
[2016-08-18 06:17] LABS: ALT/SGPT 14 U/l (0-40); Albumin 4.2 gm/dL (3.2-5.2); Alkaline Phosphatase 35 U/L (39-117); Bilirubin,Direct < 0.2 mg/dL (0.0-0.3); Blood Urea Nitrogen 31 mg/dl (8-23); Gamma Glutamyl Transpeptidase 24 U/L (8-61); Magnesium 2.2 mg/dL (1.6-2.5); Phosphorous 2.9 mg/dL (2.7-4.5); Uric Acid 5.1 mg/dL (2.5-8.0)
[2016-08-18] MEDS: INSULIN LISPRO 1 UNIT/0.01 ML UNIT SQ SCH ×4 (07:24→21:35)
[2016-08-18] MEDS: MECOBAL PO SCH (07:25)
[2016-08-18] MEDS: B6 PHOS PO SCH (07:25)
[2016-08-18] MEDS: LEVOMEFOLAT CA PO SCH (07:25)
[2016-08-18] MEDS: FINASTERIDE 5 MG TABLET PO SCH (07:36)
[2016-08-18] MEDS: FENOFIBRATE 43 MG CAPSULE PO SCH (07:36)
[2016-08-18] MEDS: HEPARIN 5,000 UNIT/ML VIAL SQ SCH ×2 (07:36→21:30)
[2016-08-18] MEDS: FAMOTIDINE/PF 20 MG/2 ML VIAL IV SCH ×2 (07:36→21:30)
[2016-08-18] MEDS: CELECOXIB 200 MG CAPSULE PO SCH (07:37)
[2016-08-18] MEDS: PREGABALIN 75 MG CAPSULE PO SCH ×2 (07:37→22:22)
[2016-08-18] MEDS: AZITHROMYCIN 250 MG TABLET PO SCH (07:37)
[2016-08-18] MEDS: OXYBUTYNIN CHLORIDE 5 MG TAB.XL.24H PO SCH (07:37)
[2016-08-18] MEDS: LISINOPRIL 5 MG TABLET PO SCH (07:37)
[2016-08-18] MEDS: CHLORHEXIDINE GLUCONATE 1 ML ORAL.SOL SWABMOUTH SCH ×2 (07:38→21:31)
[2016-08-18] MEDS ORDERED: predniSONE 20 MG TABLET PO ONE (08:20)
[2016-08-18] MEDS ORDERED: HYDROcodone/APAP 10/325MG TABLET PO PRN (09:04)
[2016-08-18] MEDS ORDERED: ACETAMINOPHEN 325 MG TABLET PO PRN (09:04)
[2016-08-18] MEDS ORDERED: SENNOSIDES 1 TABLET PO PRN (09:04)
[2016-08-18] MEDS ORDERED: DEXTROSE 50% 50 ML VIAL IV PRN (09:04)
[2016-08-18] MEDS ORDERED: FLEETS ADULT ENEMA PR PRN (09:04)
[2016-08-18] MEDS ORDERED: ONDANSETRON 4 MG/2 ML VIAL IV PRN (09:04)
[2016-08-18] MEDS ORDERED: NALOXONE HCL 0.4 MG/ML VIAL IV PRN (09:04)
[2016-08-18] MEDS ORDERED: PROMETHAZINE 25 MG/ML VIAL IV PRN (09:04)
--- NOTE | 2016-08-18 09:46 | XRay Report ---
CLINICAL INFORMATION: Increased white blood cell count COMPARISON: 08/16/2016 FINDINGS: Heart size, mediastinum and pulmonary vessels are normal. The lungs are clear. No effusions. Bones soft tissues are normal IMPRESSION: Normal Interpreted and Authenticated by: Joshua Rondon 08/18/16
--- NOTE | 2016-08-18 10:10 | Internal Med Progress Note ---
Medical - PN: Subj Patient information: Note initiated : 08/18/16 at 10:05 am Service Date, if different from initiated Date: [] Patient: Subhash Mccormack 65 y/o M admitted on 08/16/16 for L4-5 Central Decompression Possible Far Lateral. Chief Complaint: [] Interval history: 08/16-Mr. Mccormack is a 65 year old male with h/o dm, copd, htn, hld, bph, chr back pain, was having a lower back surgery today. l4,l5 lamenctomy for disc prolapse. After the procedure, the patient was a difficult extubation, after extubation the patient contined to be short of breath, wheezing. and needed BIPAP support, the patient had a Blood gas drawn which shwed acute respiratory acidosis. Medicine was there fore asked to evaluate the patient for further management. The patient on my eval was on bipap, improving mentation, but still short of breath. He was on 15/8 setting, good staturations, and having good tidal volues. The patient notes the he is a smoker, takes spiriva and uses albuterol 2 times a week, no recent hospitalization or use of steroids for copd. He was in his usual state of health before the procedure. 08/18- patient doing a lot better. Off BiPAP. On room air. Sitting in chair. No active concerns per staff or patient. No overnight events. White count up from 13.4-16.8. Repeat chest imaging unremarkable. Transfer to telemetry. transition to oral steroids. Possible discharge in 24 hours - Constitutional Vitals: Vital Signs Temp Pulse Resp BP Pulse Ox 98.4 F 109 H 21 154/79 91 08/18/16 08:00 08/18/16 08:00 08/18/16 08:00 08/18/16 08:00 08/18/16 08:00 Period Temp Pulse Resp BP Sys/Mercado Pulse Ox Last 24 Hr 97.5 F-99.2 F 78-109 12-24 90-154/43-98 88-97 Intake and Output 08/17/16 08/18/16 08/18/16 21:59 05:59 13:59 Intake Total 450 / 450 150 / 150 150 / 150 Output Total 450 / 450 625 / 625 Balance 0 / 0 -475 / -475 150 / 150 Weight 247 lb 9.6 oz Intake & Output: Intake & Output 08/17/16 08/18/16 08/18/16 21:59 05:59 13:59 Intake Total 450 / 450 150 / 150 150 / 150 Output Total 450 / 450 625 / 625 Balance 0 / 0 -475 / -475 150 / 150 Weight 247 lb 9.6 oz Intake: Oral 450 / 450 150 / 150 150 / 150 Output: Void Amount 450 / 450 625 / 625 Other: Meal Dinner Percent of Meal Consumed 100% Feeding Ability Assist with Tray Set Up # Bowel Movements 0 General appearance: cooperative, no acute distress Medical - PN: Obj Da - Labs CBC & Chem 7: 08/18/16 04:15 08/18/16 04:15 Labs: Abnormal Lab Results 08/18/16 08/18/16 08/17/16 04:15 04:15 06:20 WBC 16.8 H Gran % 91.2 H Lymph % (Auto) 6.5 L Gran # 15.3 H Lymph # 1.1 L Seg Neutrophils % Lymphocytes % BUN 31 H Glucose 146 H 155 H Phosphorus Alkaline Phosphatase 35 L 35 L Globulin 2.1 L Triglycerides 159 H 08/17/16 08/16/16 08/16/16 06:20 15:10 15:10 WBC 13.4 H 12.6 H Gran % 87.9 H Lymph % (Auto) 8.2 L Gran # 11.8 H Lymph # 1.1 L Seg Neutrophils % 93 H Lymphocytes % 6 L BUN Glucose 153 H Phosphorus 4.6 H Alkaline Phosphatase 38 L Globulin Triglycerides 168 H Meds: Medications Acetaminophen (Tylenol) 650 mg PO Q4-6HP PRN PRN Reason: PAIN/FEVER > 101 Acetaminophen/Hydrocodone Bitart ([place] 10/325mg) 1 tab PO Q4-6HP PRN PRN Reason: Pain Albuterol/Ipratropium (Duoneb) 3 ml NEB Q4HRT [facility] Azithromycin (Zithromax) 250 mg PO DAILY [facility] Stop: 08/20/16 09:01 Celecoxib (Celebrex) 200 mg PO BID [facility] Chlorhexidine Gluconate (Peridex) 15 ml SWABMOUTH BID [facility] Dextrose (Dextrose 50%) 0 ml IV UD PRN PRN Reason: Hypoglycemia Diagnostic Test (Pha) (Accu-Chek) 1 each FS ACHS [facility] Famotidine (Pepcid) 20 mg IV Q12 [facility] Fenofibrate (Antara) 129 mg PO DAILY [facility] Finasteride (Proscar) 5 mg PO DAILY [facility] Heparin Sodium (Porcine) (Heparin) 5,000 unit SQ Q12 [facility] Insulin Human Lispro (Humalog) 0 unit SQ ACHS [facility] PRN Reason: Protocol Lisinopril (Zestril) 5 mg PO DAILY [facility] Naloxone HCl (Narcan) 0.1 mg IV Q2MIN PRN PRN Reason: Opiate Reversal Ondansetron HCl (Zofran) 4 mg IV Q4-6HP PRN PRN Reason: Nausea And Vomiting Oxybutynin Chloride (Ditropan Xl) 10 mg PO DAILY [facility] Patient Own Medication () 2 dose PO DAILY [facility] Prednisone (Prednisone) 40 mg PO QAMCC [facility] Pregabalin (Lyrica) 75 mg PO BID [facility] Promethazine HCl (Phenergan) 12.5 mg IV Q4-6HP PRN PRN Reason: Nausea And Vomiting Senna (Senokot) 2 tab PO HSP PRN PRN Reason: Constipation Simvastatin (Zocor) 40 mg PO HS [facility] Sodium Biphosphate/Sodium Phosphate (Fleets Adult) 1 dose ND Q3-4DAYS PRN PRN Reason: Constipation Sodium Chloride (Saline Flush) 10 ml IV Q8 [facility] Medical - PN: A/P - Time Spent With Patient Total time spent is greater than 50% in coordination of care (as documented) at patient's floor/unit and/or counseling patient: 15 - 24 minutes (1) Acute respiratory failure with hypoxia and hypercapnia Status: Acute Assessment and plan: * Acute hypoxic hypercapnic respiratory failure- clinically improved. Off noninvasive ventilation * Systemic inflammatory response syndrome-clinically improving. Uptrending white count likely symptoms steroids. Negative interval chest imaging. negative cultures to date. Afebrile. persistent tachycardia * COPD exacerbation-managed per guidelines. Continue oral steroids/ bronchodilators.continue home CPAP * postop day 3 L4-L5 laminectomy- clear for discharge by surgery. postoperative care as per surgery recommendations * DM type II-on sliding scale insulin * neuropathy on Lyrica * Hyperlipidemia statin * Hypertension lisinopril plan * Possible discharge in 24 hours * Pre-existing medical condition management as above * transfer to telemetry Current Visit: Yes Medical - PN: Qual - VTE Deep Vein Thrombosis/Pulmonary Embolism Present on Admission: Yes
[2016-08-18] MEDS ORDERED: CELECOXIB 200 MG CAPSULE PO SCH (21:00)
[2016-08-18] MEDS ORDERED: SIMVASTATIN 40 MG TABLET PO SCH (21:00)
[2016-08-19] MEDS: IPRATROPIUM/ALBUTEROL 3 ML AMPUL.NEB NEB SCH ×2 (02:33→07:04)
[2016-08-19 05:46] LABS: Basophils # (Auto) 0 K/mcL (0.0-0.3); Basophils % (Auto) 0.2 % (0.0-2.0); Eosinophils # (Auto) 0 K/mcL (0.0-0.7); Eosinophils % (Auto) 0.1 % (0.0-7.0); Granulocytes % (Auto) 78.4 % (38.0-78.0); Lymphocytes # (Auto) 2.3 K/mcL (1.5-4.8); Lymphocytes % (Auto) 15.8 % (15.5-49.0); Mean Cell Volume 95.6 fL (80.0-100.0); Mean Corpuscular HGB Conc 31.7 g/dL (31.0-36.0); Mean Corpuscular Hemoglobin 30.3 pg (26.0-34.0); Monocytes # (Auto) 0.8 K/mcL (0.1-0.9); Monocytes % (Auto) 5.5 % (1.0-9.0); Platelet Count 332 K/mcL (140-440); RBC 4.87 M/mcL (4.50-5.90); Red Cell Distribution Width 13.7 % (11.5-14.5)
[2016-08-19 06:08] LABS: ALT/SGPT 16 U/l (0-40); Albumin 4.1 gm/dL (3.2-5.2); Albumin/Globulin Ratio 1.8 (1.0-2.3); Alkaline Phosphatase 35 U/L (39-117); Bilirubin,Direct < 0.2 mg/dL (0.0-0.3); Blood Urea Nitrogen 36 mg/dl (8-23); Gamma Glutamyl Transpeptidase 27 U/L (8-61); Magnesium 2.2 mg/dL (1.6-2.5); Phosphorous 3.5 mg/dL (2.7-4.5); Uric Acid 5.5 mg/dL (2.5-8.0)
[2016-08-19] MEDS: INSULIN LISPRO 1 UNIT/0.01 ML UNIT SQ SCH (07:08)
[2016-08-19] MEDS ORDERED: predniSONE 20 MG TABLET PO SCH ×2 (08:00)
[2016-08-19] MEDS: PREGABALIN 75 MG CAPSULE PO SCH (08:54)
[2016-08-19] MEDS: 0.9 % SODIUM CHLORIDE 10 ML SYRINGE IV SCH (08:56)
[2016-08-19] MEDS: CHLORHEXIDINE GLUCONATE 1 ML ORAL.SOL SWABMOUTH SCH (08:58)
[2016-08-19] MEDS: FAMOTIDINE/PF 20 MG/2 ML VIAL IV SCH (08:58)
[2016-08-19] MEDS: HEPARIN 5,000 UNIT/ML VIAL SQ SCH (08:58)
[2016-08-19] MEDS ORDERED: FINASTERIDE 5 MG TABLET PO SCH (09:00)
[2016-08-19] MEDS ORDERED: AZITHROMYCIN 250 MG TABLET PO SCH (09:00)
[2016-08-19] MEDS ORDERED: FENOFIBRATE 43 MG CAPSULE PO SCH (09:00)
[2016-08-19] MEDS ORDERED: PATIENTS OWN MEDICATION 1 DOSE MISCELL PO SCH (09:00)
[2016-08-19] MEDS ORDERED: OXYBUTYNIN CHLORIDE 5 MG TAB.XL.24H PO SCH (09:00)
[2016-08-19] MEDS ORDERED: LISINOPRIL 5 MG TABLET PO SCH (09:00)
--- NOTE | 2016-08-19 09:50 | Discharge Summary ---
Medical - DS: Prov Patient information: Note initiated : 08/19/16 at 9:48 am Service Date, if different from initiated Date: [] Patient: Subhash Mccormack 65 y/o M admitted on 08/16/16 for L4-5 Central Decompression Possible Far Lateral. Chief Complaint: [] Date of admission: 08/16/16 14:33 Discharge date: 08/19/16 Primary care physician: [f_Reg Prim Care Provider] Medical - DS: Meds - Discharge Medications Prescriptions: HYDROcodone/ACETAMINOPHEN [Hydrocodon-Acetaminophn 10-325] 1 - 2 each PO Q4HP PRN #60 tablet PRN Reason: Pain predniSONE [Prednisone] 40 mg PO QAMCC #10 tablet Active and Home Medications: Home Medications HYDROcodone/ACETAMINOPHEN [Hydrocodon-Acetaminophn 10-325] 1 each PO Q4-6HP PRN 08/09/16 [History Confirmed 08/09/16 Last Taken 08/15/16] Methocarbamol [Robaxin] 750 mg PO TID 08/09/16 [History Confirmed 08/09/16 Last Taken 08/15/16] Pregabalin [Lyrica] 75 mg PO BID 08/09/16 [History Confirmed 08/09/16 Last Taken 08/15/16] Vitamin D3 5,000 unit PO DAILY 08/09/16 [History Confirmed 08/09/16 Last Taken 08/15/16] HYDROcodone/ACETAMINOPHEN [Hydrocodon-Acetaminophn 10-325] 1 - 2 each PO Q4HP PRN #60 tablet 08/16/16 [Rx Last Taken Unknown] predniSONE [Prednisone] 40 mg PO QAMCC #10 tablet 08/19/16 [Rx Last Taken Unknown] Medical - DS: Hosp Hospital course: Discharge diagnoses * Acute hypoxic hypercapnic respiratory failure- clinically resolved. Off BiPAP. Continue home CPAP. physical baseline * Systemic inflammatory response syndrome-clinically resolved. Downtrending leukocytosis. * COPD exacerbation-clinically resolved with management per guidelines. Continue oral steroids for additional 5 days along with bronchodilators and home CPAP * Postop day 3 L4-L5 laminectomy- follow-up surgery as outpatient as recommended by Dr. Kenyon * DM type II-on sliding scale insulin * neuropathy on Lyrica * Hyperlipidemia statin * Hypertension lisinopril Brief hospital course 08/16-Mr. Mccormack is a 65 year old male with h/o dm, copd, htn, hld, bph, chr back pain, was having a lower back surgery today. l4,l5 lamenctomy for disc prolapse. After the procedure, the patient was a difficult extubation, after extubation the patient contined to be short of breath, wheezing. and needed BIPAP support, the patient had a Blood gas drawn which shwed acute respiratory acidosis. Medicine was there fore asked to evaluate the patient for further management. The patient on my eval was on bipap, improving mentation, but still short of breath. He was on 15/ setting, good staturations, and having good tidal volues. The patient notes the he is a smoker, takes spiriva and uses albuterol 2 times a week, no recent hospitalization or use of steroids for copd. He was in his usual state of health before the procedure. 08/18- patient doing a lot better. Off BiPAP. On room air. Sitting in chair. No active concerns per staff or patient. No overnight events. White count up from 13.4-16.8. Repeat chest imaging unremarkable. Transfer to telemetry. transition to oral steroids. Possible discharge in 24 hours 08/19 patient doing well. No overnight events. No concerns per staff. Discharge on additional 5 days steroids and home CPAP. Feels at baseline. Discharge instructions as below Discharge diagnosis: hypercapnic Hypoxic respiratory failure - Time Spent with Patient Total time spent providing and/or coordinating discharge services: Medical - DS: Exam - Constitutional Vitals: Vital Signs Temp Pulse Pulse Resp BP Pulse Ox 08/19/16 07:04 86 65 H 94 08/19/16 04:00 98.2 F 86 20 140/76 92 08/19/16 02:49 92 H 18 08/18/16 23:54 97.8 F 89 18 117/60 91 08/18/16 23:26 87 08/18/16 20:00 18 95 08/18/16 19:38 115 H 08/18/16 19:35 98.3 F 20 150/84 91 08/18/16 16:00 98.7 F 20 133/70 91 08/18/16 15:21 105 H 18 08/18/16 11:21 98.2 F 20 147/69 94 08/18/16 11:00 96 H 18 Intake and Output 08/18/16 08/19/1617 21:59 05:59 13:59 Intake Total 840 / 840 Output Total 241 / 241 Balance 599 / 599 Intake: Oral 840 / 840 Output: Void Amount 241 / 241 Other: # Voids 1 # Bowel Movements 1 1 Weight 246 lb Medical - DS: Data Labs on day of discharge: Labs from last 24 hours 08/19/16 08/19/16 08/18/16 04:25 04:25 08:45 WBC 14.5 H RBC 4.87 Hgb 14.8 Hct 46.6 MCV 95.6 MCH 30.3 MCHC 31.7 RDW 13.7 Plt Count 332 MPV 8.8 Gran % 78.4 H Lymph % (Auto) 15.8 Leslie % (Auto) 5.5 Eos % (Auto) 0.1 Baso % (Auto) 0.2 Gran # 11.4 H Lymph # 2.3 Leslie # 0.8 Eos # 0 Baso # 0 Sodium 143 Potassium 4.5 Chloride 101 Carbon Dioxide 26 Anion Gap 16.0 BUN 36 H Creatinine 1.0 GFR Calculation 78 Glucose 120 H Uric Acid 5.5 Calcium 9.5 Phosphorus 3.5 Magnesium 2.2 Total Bilirubin 0.3 Direct Bilirubin < 0.2 GGT 27 AST 16 ALT 16 Alkaline Phosphatase 35 L Lactate Dehydrogenase 153 Total Protein 6.4 Albumin 4.1 Globulin 2.3 Albumin/Globulin Ratio 1.8 Triglycerides 216 H Procalcitonin 0.05 Medical - DS: A/P - Patient/Caregiver Discharge Instructions Activity: as per physical therapy Diet: Regular Diet Additional Instructions: No forward bending, no lifting. Follow-up PCP in 5 days follow-up with Dr. Kenyon as advised I recommend primary care physician to check CBC BMP UA as a posthospital follow -up and Chest x-ray in 1 week. oral steroids for 5 days home CPAP Continue aggressive bowel regimen to prevent constipation Continue fall precautions All meals on chair sitting upright at 90 degrees to prevent aspiration Return to ER if worsening fever chills shortness of breath, diarrhea, bleeding refrain from smoking Continue diet and activity as advised Discussed importance of medication adherence Please review medication list with patient prior to discharge Please schedule follow-up with PCP/Providers prior to discharge and provide printouts Portions of this chart may have been created with [employer] voice recognition software. Occasional wrong-word or ?sound-like? substitutions may have occurred due to the inherent limitations of voice recognition software. Please read the chart carefully and recognize, using context, where the substitutions have occurred. CC- PCP Prescriptions: HYDROcodone/ACETAMINOPHEN [Hydrocodon-Acetaminophn 10-325] 1 - 2 each PO Q4HP PRN #60 tablet PRN Reason: Pain predniSONE [Prednisone] 40 mg PO QAMCC #10 tablet - Problem Maintenance (1) Acute respiratory failure with hypoxia and hypercapnia Status: Acute - Follow up Plan Follow up with: Florentin Jenkins MD [Primary Care Provider] - 09/02/16 3:15 pm Gerald Kenyon MD [Physician] - 08/31/16 10:40 am Disposition: Home, Self-Care Prognosis: Fair Rehab Potential: Fair I certify that the patient requires SNF services: No Overall status at discharge: patient is progressing back to baseline Medical - DS: Qual - VTE Deep Vein Thrombosis/Pulmonary Embolism Present on Admission: Yes
== END 2016-08-19 11:00 | disposition home or self-care (01) | DRG 518 ==
LOC: SUR 06:13 → ICU 14:33
PROVIDERS: ADMIT Internal Medicine; ATTEND Internal Medicine

== ENCOUNTER 2019-01-30 14:43 | Observation (INO) ==
--- NOTE | 2019-01-30 15:26 | XRay Report ---
HISTORY: Short of breath FINDINGS: The lungs are clear. The heart, mediastinum, dasia and pleura are normal. There has been no significant change since 08/18/16 IMPRESSION: Normal chest. Interpreted and Authenticated by: Parish Javed 01/30/19
[2019-01-30] MEDS ORDERED: IPRATROPIUM/ALBUTEROL 3 ML AMPUL.NEB NEB ONE (15:28)
[2019-01-30] MEDS ORDERED: methylPREDNISolone SOD SUCC 125 MG/2 ML VIAL IV ONE (15:34)
--- NOTE | 2019-01-30 15:38 | Emergency Department Note ---
SOB HPI - General Chief Complaint: Shortness of Breath/Dyspnea Stated Complaint: Shortness of breath Time Seen by Provider: 01/30/19 14:52 Source: patient Mode of arrival: wheelchair Limitations: no limitations - History of Present Illness 68-year-old male comes in complaining of shortness of breath and productive cough. He is sent over from pain management with oxygen saturation as low as 87%. He is not on home oxygen. He continues to smoke. He has had trouble the last 2 days. He had a recent cystoscopic by Dr. Obregon for bladder cancer which is being treated. Endorses fever - Related Data Home Medications Medication Instructions Recorded Confirmed Fenofibrate,Micronized 134 mg PO DAILY 04/03/16 01/26/19 [Fenofibrate] Finasteride [Proscar] 5 mg PO DAILY 04/03/16 01/26/19 Lisinopril [Zestril] 5 mg PO DAILY 04/03/16 01/26/19 Mecobal/Levomefolat Ca/B6 Phos 2 tab PO DAILY 04/03/16 01/26/19 [Foltanx Tablet] Omeprazole [Prilosec] 20 mg PO ACB 04/03/16 01/26/19 Simvastatin [Zocor] 40 mg PO HS 04/03/16 01/26/19 Tadalafil [Cialis] 5 mg PO DAILY 04/03/16 01/26/19 metFORMIN [Glucophage] 500 mg PO BID 04/03/16 01/26/19 Methocarbamol [Robaxin] 750 mg PO TID 08/09/16 01/26/19 Vitamin D3 5,000 unit PO DAILY 08/09/16 01/26/19 coenzyme Q10 100 mg capsule 100 mg PO BID cap 07/31/18 01/26/19 doxycycline hyclate 100 mg capsule 100 mg PO BID 07/31/18 01/26/19 metformin ER 500 mg 1,500 mg PO QDAY tab 07/31/18 01/26/19 tablet,extended release 24 hr omega-3 fatty acids 1,000 mg 2,000 mg PO QDAY 07/31/18 01/26/19 capsule tiotropium bromide 18 mcg capsule 1 cap INHALATION QDAY 07/31/18 01/26/19 with inhalation device Albuterol Sulfate [Proair 90 mcg IH QID 08/28/18 01/26/19 Respiclick] Arnica 1 ribbon TOPICAL BID 08/28/18 01/26/19 HYDROcodone/APAP 10/325MG [[place] 1 tab PO Q6H PRN 08/28/18 01/26/19 10-325Mg] furosemide 20 mg tablet 20 mg PO QAM 10/20/18 01/26/19 potassium chloride ER 10 mEq 10 meq PO QDAY 10/20/18 01/26/19 capsule,extended release Previous Rx's Medication Instructions Recorded tamsulosin 0.4 mg capsule 0.4 mg PO QDAY #30 cap 01/26/19 Allergies Allergy/AdvReac Type Severity Reaction Status Date / Time povidone-iodine Allergy Intermediate Rash Verified 01/26/19 09:24 [From Betadine] soap [From Betadine] Allergy Intermediate Rash Verified 01/26/19 09:24 Review of Systems All systems ED: reviewed and negative except as stated. Past Medical History - Past Medical History Attestation: Yes: The following information was validated with the patient. [facility] Narrative: Family History (Last Reviewed 01/26/19 @ 09:25 by Ayesha Greer, ANABELA) Father Cancer Brother Bladder cancer Family/Other Diabetes mellitus Medical History (Last Reviewed 01/26/19 @ 09:25 by Ayesha Greer RN) Prostate cancer screening (Chronic) Decreased anal sphincter tone (Chronic) Umbilical hernia (Chronic) Obese (Chronic) Rhonchi (Chronic) Wheezing (Chronic) Shortness of breath (Chronic) History of sinus problem (Chronic) Urine retention (Chronic) History of kidney stones (Chronic) Uncircumcised male (Chronic) Nocturia (Chronic) Prostatic hypertrophy (Chronic) High prostate specific antigen (PSA) (Chronic) [facility] (current) use of opiate analgesic (Chronic) Arthritis of hip (Chronic) Bleeding (Chronic) Numbness and tingling (Chronic) Hypercapnia (Chronic) Hypoxia (Chronic) Respiratory failure (Chronic) GERD (gastroesophageal reflux disease) (Chronic) Enlarged prostate (Chronic) Overactive bladder (Chronic) Sleep apnea (Chronic) COPD (chronic obstructive pulmonary disease) (Chronic) Degenerative disc disease (Chronic) Back pain (Chronic) Left hip pain (Chronic) Hematuria (Chronic) Spinal stenosis at L4-L5 level (Chronic) Acute respiratory failure with hypoxia and hypercapnia (Chronic) Chronic obstructive asthma with exacerbation (Chronic) Diabetes mellitus (Chronic) Essential hypertension (Chronic) BPH (benign prostatic hyperplasia) (Chronic) Chronic pain (Chronic) Hyperlipidemia (Chronic) Normal colonoscopy (Chronic 11/28/12) Past Surgical History (Last Reviewed 01/26/19 @ 09:25 by Ayesha Greer RN) Bilateral cataracts (Chronic ~06/2012) History of laminectomy (Chronic 08/16/16) History of tonsillectomy and adenoidectomy (Chronic) Hx of cholecystectomy (Chronic) Hx of colonoscopy (Chronic) Hx of hand surgery (Chronic) Hx of right knee surgery (Chronic) Synovial cyst of hand (Chronic 10/14/14) Wrist joint replacement status (Chronic 03/18/08) Medical history: Reports: cancer (Bladder), other Surgical history ED: Reports: other - Social History smoking status: Current every day smoker Alcohol use: Reports: Rarely Drug use: Reports: none Physical Exam No acute distress resting comfortably. Normocephalic atraumatic. Conjunctive are clear sclerae white and icteric. No nasal discharge or congestion. Oropharynx pink and moist. Neck is supple without lymphadenopathy or thyrome kendall. Heart is regular rate and rhythm no murmur appreciated. Lungs with wheezes and rhonchi in all lung vazquez. No rales. No respiratory distress but he does have a productive cough. He is hypoxic and requiring 2 L nasal cannula oxygen. Abdomen soft nontender nondistended. No pedal edema. +2 radial pulse. Limitations: no limitations Course Vital Signs Temperature 96.8 F L 01/30/19 14:45 Pulse Rate 98 H 01/30/19 14:45 Respiratory Rate 22 01/30/19 14:45 Blood Pressure 86/59 01/30/19 14:45 Pulse Oximetry (%) 89 L 01/30/19 14:45 Temperature 96.8 F L 01/30/19 14:45 Pulse Rate 91 H 01/30/19 16:06 Respiratory Rate 14 01/30/19 15:41 Blood Pressure 99/65 01/30/19 16:06 Pulse Oximetry (%) 93 01/30/19 16:06 Shortness of Breath/Dyspnea - Lab Data Lab results reviewed: Yes I reviewed the patient's lab results. Result diagrams: 01/30/19 15:02 01/30/19 15:02 Lab Results 01/30/19 01/30/1901/30/19 Range/Units 15:02 15:02 15:02 WBC 14.6 H (4.5-11.0) K/mcL RBC 4.90 (4.50-5.90) M/mcL Hgb 13.8 (13.5-16.5) g/dL Hct 43.9 (41.0-55.0) % MCV 89.6 (80.0-100.0) fL MCH 28.2 (26.0-34.0) pg MCHC 31.4 (31.0-36.0) g/dL RDW 16.0 H (11.5-14.5) % Plt Count 321 (140-440) K/mcL MPV 8.7 (7.4-10.4) fL Total Counted 100 Seg Neutrophils % 64 (38-78) % Band Neutrophils % 15 H (0-10) % Lymphocytes % 14 L (15-49) % Monocytes % (Manual) 5 (1-12) % Basophils % (Manual) 1 (0-2) % Reactive Lymphocytes 1 (0-2) % Platelet Estimate Normal (NORMAL) RBC Morphology Abnormal (NORMAL) Anisocytosis 1+ A (NONE SEEN) VBG Lactic Acid 0.9 (0.5-2.0) mmol/L Sodium 141 (133-145) mmol/L Potassium 4.7 (3.3-5.1) mmol/L Chloride 99 (96-108) mmol/L Carbon Dioxide 28 (22-30) mmol/L Anion Gap 14.0 (8-16) BUN 25 H (8-23) mg/dl Creatinine 1.5 H (0.7-1.2) mg/dl GFR Calculation 47 Glucose 119 H (70-105) mg/dL Calcium 9.3 (8.6-10.4) mg/dl Total Bilirubin 0.5 (0.0-1.0) mg/dL AST 22 (0-37) U/l ALT 24 (0-40) U/l Alkaline Phosphatase 45 (39-117) U/L Total Protein 7.4 (5.9-8.4) gm/dL Albumin 3.8 (3.2-5.2) gm/dL Globulin 3.6 (2.2-3.7) gm/dL Albumin/Globulin Ratio 1.1 (1.0-2.3) Procalcitonin (<0.10) ng/mL 01/30/19 Range/Units 15:02 WBC (4.5-11.0) K/mcL RBC (4.50-5.90) M/mcL Hgb (13.5-16.5) g/dL Hct (41.0-55.0) % MCV (80.0-100.0) fL MCH (26.0-34.0) pg MCHC (31.0-36.0) g/dL RDW (11.5-14.5) % Plt Count (140-440) K/mcL MPV (7.4-10.4) fL Total Counted Seg Neutrophils % (38-78) % Band Neutrophils % (0-10) % Lymphocytes % (15-49) % Monocytes % (Manual) (1-12) % Basophils % (Manual) (0-2) % Reactive Lymphocytes (0-2) % Platelet Estimate (NORMAL) RBC Morphology (NORMAL) Anisocytosis (NONE SEEN) VBG Lactic Acid (0.5-2.0) mmol/L Sodium (133-145) mmol/L Potassium (3.3-5.1) mmol/L Chloride (96-108) mmol/L Carbon Dioxide (22-30) mmol/L Anion Gap (8-16) BUN (8-23) mg/dl Creatinine (0.7-1.2) mg/dl GFR Calculation Glucose (70-105) mg/dL Calcium (8.6-10.4) mg/dl Total Bilirubin (0.0-1.0) mg/dL AST (0-37) U/l ALT (0-40) U/l Alkaline Phosphatase (39-117) U/L Total Protein (5.9-8.4) gm/dL Albumin (3.2-5.2) gm/dL Globulin (2.2-3.7) gm/dL Albumin/Globulin Ratio (1.0-2.3) Procalcitonin 0.12 (<0.10) ng/mL - Radiology Data Radiology results reviewed: Yes I reviewed the patient's radiology results. Chest x-ray shows no acute cardiopulmonary disease-chronic emphysematous changes Disposition Pt seen by BILLING COLLECTIONS SPECIALIST/PA only: No Clinical Impression: Acute exacerbation of chronic obstructive airways disease, Tobacco use, Hypoxia Summary: Start DuoNeb oxygen therapy azithromycin and Solu-Medrol. X-ray is unremarkable. Laboratory work-up pending I tried to discuss smoking cessation with the patient but he was not really open to that His lungs cleared up with a single DuoNeb but he remained hypoxic requiring 2 L to stay above 90% oxygen saturation. ABG was ordered. He remains dyspneic with even minor activity such as sitting up Dr. Mccoy, our hospitalist was contacted for admission-he will admit patient Disposition: Home, Self-Care Condition: Serious Referrals: Florentin Jenkins MD [Primary Care Provider] -
[2019-01-30] MEDS ORDERED: AZITHROMYCIN 250 MG TABLET PO ONE ×2 (15:41→15:57)
[2019-01-30 15:46] LABS: Hematocrit 43.9 % (41.0-55.0); Hemoglobin 13.8 g/dL (13.5-16.5); Mean Cell Volume 89.6 fL (80.0-100.0); Mean Corpuscular HGB Conc 31.4 g/dL (31.0-36.0); Mean Platelet Volume 8.7 fL (7.4-10.4); Platelet Count 321 K/mcL (140-440); WBC 14.6 K/mcL (4.5-11.0)
[2019-01-30 16:17] LABS: ALT/SGPT 24 U/l (0-40); AST/SGOT 22 U/l (0-37); Albumin 3.8 gm/dL (3.2-5.2); Albumin/Globulin Ratio 1.1 (1.0-2.3); Alkaline Phosphatase 45 U/L (39-117); Bilirubin,Total 0.5 mg/dL (0.0-1.0); Blood Urea Nitrogen 25 mg/dl (8-23); Calcium 9.3 mg/dl (8.6-10.4); Carbon Dioxide 28 mmol/L (22-30); Chloride 99 mmol/L (96-108); Globulin 3.6 gm/dL (2.2-3.7); Glomerular Filtration Rate 47; Glucose 119 mg/dL (70-105)
[2019-01-30 16:19] LABS: Anisocytosis 1+ (NONE SEEN); Band Neutrophils % 15 % (0-10); Basophils % (Manual) 1 % (0-2); Lymphocytes % 14 % (15-49); Monocytes % (Manual) 5 % (1-12); Platelet Estimate NORMAL (NORMAL); RBC Morphology ABNORMAL (NORMAL); Reactive Lymphocytes 1 % (0-2); Segmented Neutrophils % 64 % (38-78)
--- NOTE | 2019-01-30 16:56 | Internal Med History&Physical ---
Medical - H&P: HPI Patient information: Note initiated : 01/30/19 at 4:54 pm Service Date, if different from initiated Date: [] Patient: Subhash Mccormack a 68 y/o M admitted on for Shortness of breath. Chief Complaint: [] History of present illness: Mr. Mccormack is a 68 year old M with history of chronic smoking, bladder cancer presently undergoing treatment with Dr. Obregon presents to the emergency room after being sent here from the pain clinic for low oxygen levels. The patient denies any acute complaints he feels he is fine. On further pressing he admits to having some chronic cough and johnson sputum. Denies any b lood in the sputum. He denies any acute worsening of shortness of breath but does admit to having some fever and chills a couple of days ago. He denies any headache changes in vision difficulty in swallowing chest pain, denies any shortness of breath to me, denies any nausea vomiting abdominal pain, has increased urinary frequency which he attributes to his bladder cancer as well as prostate issues. Denies any new joint pain skin rashes denies any bleeding episodes. On presenting to the emergency room patient was afebrile hemodynamically stable but saturating 87% on room air, he was actively wheezing, after giving treatment for COPD the patient remained hypoxic oxygen saturation 87%, which improved to 93% on 1 L. Labs show leukocytosis with a WBC count of 14.6 hemoglobin 13.8 platelets 321, creatinine is 1.5 rest of the chemistry unremarkable. Lactic acid is normal procalcitonin is 0.12. Chest x-ray is interpreted as no acute infiltrates. Given that the patient has increased oxygen needs, history of COPD and wheezing patient is being admitted to the hospital for management of acute exacerbation of COPD Patient is an active smoker, does not intend to quit, I offered him nicotine replacement therapy comes patches however he notes that he would rather go outside and smoke. Declined nicotine replacement therapy All systems: reviewed and no additional remarkable complaints except as stated (As per HPI rest negative) Medical - H&P: PMH Medical history: Medical History (Last Reviewed 01/26/19 @ 09:25 by Ayesha Greer RN) Prostate cancer screening (Chronic) Decreased anal sphincter tone (Chronic) Umbilical hernia (Chronic) Obese (Chronic) Rhonchi (Chronic) Wheezing (Chronic) Shortness of breath (Chronic) History of sinus problem (Chronic) Urine retention (Chronic) History of kidney stones (Chronic) Uncircumcised male (Chronic) Nocturia (Chronic) Prostatic hypertrophy (Chronic) High prostate specific antigen (PSA) (Chronic) 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) use of opiate analgesic (Chronic) Arthritis of hip (Chronic) Bleeding (Chronic) Numbness and tingling (Chronic) Hypercapnia (Chronic) Hypoxia (Chronic) Respiratory failure (Chronic) GERD (gastroesophageal reflux disease) (Chronic) Enlarged prostate (Chronic) Overactive bladder (Chronic) Sleep apnea (Chronic) COPD (chronic obstructive pulmonary disease) (Chronic) Degenerative disc disease (Chronic) Back pain (Chronic) Left hip pain (Chronic) Hematuria (Chronic) Spinal stenosis at L4-L5 level (Chronic) Acute respiratory failure with hypoxia and hypercapnia (Chronic) Chronic obstructive asthma with exacerbation (Chronic) Diabetes mellitus (Chronic) Essential hypertension (Chronic) BPH (benign prostatic hyperplasia) (Chronic) Chronic pain (Chronic) Hyperlipidemia (Chronic) Normal colonoscopy (Chronic 11/28/12) Surgical history: Past Surgical History (Last Reviewed 01/26/19 @ 09:25 by Ayesha Greer RN) Bilateral cataracts (Chronic ~06/2012) History of laminectomy (Chronic 08/16/16) History of tonsillectomy and adenoidectomy (Chronic) Hx of cholecystectomy (Chronic) Hx of colonoscopy (Chronic) Hx of hand surgery (Chronic) Hx of right knee surgery (Chronic) Synovial cyst of hand (Chronic 10/14/14) Wrist joint replacement status (Chronic 03/18/08) Pertinent family history: Family History (Last Reviewed 01/26/19 @ 09:25 by Ayesha Greer RN) Father Cancer Brother Bladder cancer Family/Other Diabetes mellitus Medical - H&P: Meds Home Medications Medication Instructions Recorded Confirmed Type Fenofibrate,Micronized 134 mg PO DAILY 04/03/16 01/26/19 History [Fenofibrate] Finasteride [Proscar] 5 mg PO DAILY 04/03/16 01/26/19 History Lisinopril [Zestril] 5 mg PO DAILY 04/03/16 01/26/19 History Mecobal/Levomefolat Ca/B6 Phos 2 tab PO DAILY 04/03/16 01/26/19 History [Foltanx Tablet] Omeprazole [Prilosec] 20 mg PO ACB 04/03/16 01/26/19 History Simvastatin [Zocor] 40 mg PO HS 04/03/16 01/26/19 History Tadalafil [Cialis] 5 mg PO DAILY 04/03/16 01/26/19 History metFORMIN [Glucophage] 500 mg PO BID 04/03/16 01/26/19 History Methocarbamol [Robaxin] 750 mg PO TID 08/09/16 01/26/19 History Vitamin D3 5,000 unit PO DAILY 08/09/16 01/26/19 History coenzyme Q10 100 mg capsule 100 mg PO BID cap 07/31/18 01/26/19 History doxycycline hyclate 100 mg capsule 100 mg PO BID 07/31/18 01/26/19 History metformin ER 500 mg 1,500 mg PO QDAY tab 07/31/18 01/26/19 History tablet,extended release 24 hr omega-3 fatty acids 1,000 mg 2,000 mg PO QDAY 07/31/18 01/26/19 History capsule tiotropium bromide 18 mcg capsule 1 cap INHALATION QDAY 07/31/18 01/26/19 History with inhalation device Albuterol Sulfate [Proair 90 mcg IH QID 08/28/18 01/26/19 History Respiclick] Arnica 1 ribbon TOPICAL BID 08/28/18 01/26/19 History HYDROcodone/APAP 10/325MG [[place] 1 tab PO Q6H PRN 08/28/18 01/26/19 History 10-325Mg] furosemide 20 mg tablet 20 mg PO QAM 10/20/18 01/26/19 History potassium chloride ER 10 mEq 10 meq PO QDAY 10/20/18 01/26/19 History capsule,extended release tamsulosin 0.4 mg capsule 0.4 mg PO QDAY #30 cap 01/26/19 01/26/19 Rx Allergies Allergy/AdvReac Type Severity Reaction Status Date / Time povidone-iodine Allergy Intermediate Rash Verified 01/26/19 09:24 [From Betadine] soap [From Betadine] Allergy Intermediate Rash Verified 01/26/19 09:24 Medical - H&P: Exam - Constitutional Vitals: Temp Pulse Resp BP Pulse Ox 96.8 F L 92 H 14 93/53 90 01/30/19 14:45 01/30/19 16:41 01/30/19 16:41 01/30/19 16:41 01/30/19 16:41 Exam: Constitutional; Afebrile, cooperative, alert, not in distress. Obese individual Eyes- No icterus, , No periorbital swelling Ears- Ext ear normal, hearing normal to conversation. Neck- Midline trachea, supple Respiratory system: Air Entry equal on both sides, prolonged expiratory phase, bilateral expiratory wheezing, and is able to speak full sentences not in respiratory distress no accessory muscles of respiration are used CVS- Rate rhythm regular, S1,S2 heard, no gallop, no rub. 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 Medical - H&P: Reslt - Labs CBC & Chem 7: 01/30/19 15:02 01/30/19 15:02 Labs: Short CBC 01/30/19 Range/Units 15:02 WBC 14.6 H (4.5-11.0) K/mcL Hgb 13.8 (13.5-16.5) g/dL Hct 43.9 (41.0-55.0) % Plt Count 321 (140-440) K/mcL BMP 01/30/19 15:02 Sodium 141 Potassium 4.7 Chloride 99 Carbon Dioxide 28 BUN 25 H Creatinine 1.5 H Glucose 119 H Calcium 9.3 Liver Function 01/30/19 Range/Units 15:02 Total Bilirubin 0.5 (0.0-1.0) mg/dL AST 22 (0-37) U/l ALT 24 (0-40) U/l Alkaline Phosphatase 45 (39-117) U/L Albumin 3.8 (3.2-5.2) gm/dL Medical - H&P: A/P - Narrative A/P Narrative: A/P Acute hypoxic respiratory failure Acute exacerbation of COPD Obesity Tobacco abuse cigarette smoker History of bladder cancer presently undergoing treatment with Dr. Obregon BPH Hyperlipidemia Chronic pain syndrome followed at the pain clinic Plan Admit to MedSurg Oxygen to keep oxygen saturation more than 90% (patient denies any previous history of low oxygen or any recommendation of oxygen therapy) Oral steroids duo nebs and Zithromax for management of COPD Wean off oxygen as tolerated Aggressive pulmonary toilet patient has no desire to quit smoking Resume home medications once verified Anticipate discharge home within 24 to 48 hours if oxygen saturation is more than 90% Heparin subcu for DVT prophylaxis Patient is full code Regular diet Social History - Social History marital status: occupational status: disabled occupation: Retired 10/09/08, now disabled, on SSI - Tobacco smoking status: Current every day smoker - Alcohol alcohol intake frequency: 0-2 drinks per day - Substance use substance use type: does not use
[2019-01-30] MEDS ORDERED: ONDANSETRON 4 MG/2 ML VIAL IV PRN (17:29)
[2019-01-30] MEDS ORDERED: NALOXONE HCL 0.4 MG/ML VIAL IV PRN (17:29)
[2019-01-30] MEDS ORDERED: ACETAMINOPHEN 325 MG TABLET PO PRN (17:29)
[2019-01-30] MEDS: IPRATROPIUM/ALBUTEROL 3 ML AMPUL.NEB NEB SCH ×2 (19:58→23:25)
[2019-01-30] MEDS ORDERED: HYDROcodone/APAP 10/325MG TABLET PO PRN (20:39)
[2019-01-30] MEDS: SIMVASTATIN 40 MG TABLET PO SCH (21:20)
[2019-01-30] MEDS: METHOCARBAMOL 750 MG TABLET PO SCH (21:20)
[2019-01-30] MEDS: SENNOSIDES 1 TABLET PO SCH (21:21)
[2019-01-30] MEDS: HEPARIN 5,000 UNIT/ML VIAL SQ SCH (21:29)
[2019-01-30] MEDS: 0.9 % SODIUM CHLORIDE 10 ML SYRINGE IV SCH (21:31)
[2019-01-31] MEDS: IPRATROPIUM/ALBUTEROL 3 ML AMPUL.NEB NEB SCH ×6 (04:38→22:30)
[2019-01-31] MEDS: 0.9 % SODIUM CHLORIDE 10 ML SYRINGE IV SCH ×3 (05:57→20:32)
[2019-01-31 06:11] LABS: Basophils # (Auto) 0 K/mcL (0.0-0.3); Basophils % (Auto) 0 % (0.0-2.0); Eosinophils # (Auto) 0 K/mcL (0.0-0.7); Eosinophils % (Auto) 0 % (0.0-7.0); Granulocytes % (Auto) 90.7 % (38.0-78.0); Hematocrit 43.4 % (41.0-55.0); Hemoglobin 13.5 g/dL (13.5-16.5); Lymphocytes # (Auto) 0.8 K/mcL (1.5-4.8); Lymphocytes % (Auto) 7.8 % (15.5-49.0); Mean Cell Volume 91.4 fL (80.0-100.0); Mean Corpuscular HGB Conc 31.1 g/dL (31.0-36.0); Mean Platelet Volume 8.8 fL (7.4-10.4); Monocytes # (Auto) 0.2 K/mcL (0.1-0.9); Monocytes % (Auto) 1.5 % (1.0-12.0); Platelet Count 283 K/mcL (140-440); RBC 4.75 M/mcL (4.50-5.90); Red Cell Distribution Width 16.4 % (11.5-14.5); WBC 10.1 K/mcL (4.5-11.0)
[2019-01-31 06:31] LABS: ALT/SGPT 20 U/l (0-40); AST/SGOT 21 U/l (0-37); Albumin 3.4 gm/dL (3.2-5.2); Albumin/Globulin Ratio 0.9 (1.0-2.3); Alkaline Phosphatase 42 U/L (39-117); Bilirubin,Direct < 0.2 mg/dL (0.0-0.3); Bilirubin,Total 0.3 mg/dL (0.0-1.0); Blood Urea Nitrogen 29 mg/dl (8-23); Calcium 9.1 mg/dl (8.6-10.4); Carbon Dioxide 25 mmol/L (22-30); Chloride 96 mmol/L (96-108); Globulin 3.7 gm/dL (2.2-3.7); Glomerular Filtration Rate 56; Glucose 176 mg/dL (70-105); Lactate Dehydrogenase 183 U/L (94-250); Phosphorous 3.4 mg/dL (2.7-4.5); Triglycerides 134 mg/dl (<150); Uric Acid 7.6 mg/dL (2.5-8.0)
[2019-01-31] MEDS: OMEPRAZOLE 20 MG CAPSULE PO SCH (07:24)
[2019-01-31] MEDS: METHOCARBAMOL 750 MG TABLET PO SCH ×3 (08:21→20:32)
[2019-01-31] MEDS: POTASSIUM CHLORIDE 10 MEQ TABLET PO SCH (08:22)
[2019-01-31] MEDS: AZITHROMYCIN 250 MG TABLET PO SCH (08:22)
[2019-01-31] MEDS: predniSONE 20 MG TABLET PO SCH (08:22)
[2019-01-31] MEDS: metFORMIN 500 MG TAB.XL.24H PO SCH (08:24)
[2019-01-31] MEDS: FINASTERIDE 5 MG TABLET PO SCH (08:24)
--- NOTE | 2019-01-31 08:24 | Internal Med Progress Note ---
Medical - PN: Subj Patient information: Note initiated : 01/31/19 at 8:22 am Service Date, if different from initiated Date: [] Patient: Subhash Mccormack a 68 y/o M admitted on 01/30/19 for Shortness of breath. Chief Complaint: [] Interval history: Mr. Mccormack is a 68 year old M with history of chronic smoking, bladder cancer presently undergoing treatment with Dr. Obregon presents to the emergency room after being sent here from the pain clinic for low oxygen levels. The patient denies any acute complaints he feels he is fine. On further pressing he admits to having some chronic cough and johnson sputum. Denies any bl ood in the sputum. He denies any acute worsening of shortness of breath but does admit to having some fever and chills a couple of days ago. He denies any headache changes in vision difficulty in swallowing chest pain, denies any shortness of breath to me, denies any nausea vomiting abdominal pain, has increased urinary frequency which he attributes to his bladder cancer as well as prostate issues. Denies any new joint pain skin rashes denies any bleeding episodes. On presenting to the emergency room patient was afebrile hemodynamically stable but saturating 87% on room air, he was actively wheezing, after giving treatment for COPD the patient remained hypoxic oxygen saturation 87%, which improved to 93% on 1 L. Labs show leukocytosis with a WBC count of 14.6 hemoglobin 13.8 platelets 321, creatinine is 1.5 rest of the chemistry unremarkable. Lactic acid is normal procalcitonin is 0.12. Chest x-ray is interpreted as no acute infiltrates. Given that the patient has increased oxygen needs, history of COPD and wheezing patient is being admitted to the hospital for management of acute exacerbation of COPD Patient is an active smoker, does not intend to quit, I offered him nicotine replacement therapy comes patches however he notes that he would rather go outside and smoke. Declined nicotine replacement therapy 01/31 Patient seen and examined no acute overnight events Still on oxygen, he was sitting comfortably in bed enjoying his breakfast He has no new complaints or concerns Labs are stable Pertinent ROS: Denies headache, dizziness Denies chest pain, palpitations Denies cough or shortness of breath Denies abdominal pain, nausea or vomiting. - Constitutional Vitals: Vital Signs Temp Pulse Resp BP Pulse Ox 98.1 F 88 20 115/66 94 01/31/19 07:41 01/31/19 08:06 01/31/19 08:06 01/31/19 07:41 01/31/19 08:06 Period Temp Pulse Resp BP Sys/Mercado Pulse Ox Last 24 Hr 96.8 F-98.1 F 85-98 14-30 86-129/51-93 85-95 Intake and Output 01/30/19 01/31/19 01/31/19 21:59 05:59 13:59 Intake Total 600 Balance 600 Weight 262 lb 14.4 oz Intake & Output: Intake & Output 01/30/19 01/31/19 01/31/19 21:59 05:59 13:59 Intake Total 600 Balance 600 Weight 262 lb 14.4 oz Intake: Oral 600 Other: # Voids 1 1 Exam: Constitutional; Afebrile, cooperative, alert, not in distress. Eyes- No icterus, , No periorbital swelling Ears- Ext ear normal, hearing normal to conversation. Neck- Midline trachea, supple Respiratory system: Air Entry equal on both sides, bilateral expiratory wheezes present no significant change since yesterday, patient is not in respiratory distress CVS- Rate rhythm regular, S1,S2 heard, no gallop, no rub. 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 Medical - PN: Obj Da - Labs CBC & Chem 7: 01/31/19 03:43 01/31/19 03:43 Labs: Abnormal Lab Results 01/31/19 01/31/19 01/30/19 03:43 03:43 15:02 WBC RDW 16.4 H Gran % 90.7 H Lymph % (Auto) 7.8 L Gran # 9.2 H Lymph # (Auto) 0.8 L Band Neutrophils % Lymphocytes % Anisocytosis Anion Gap 17.0 H BUN 29 H 25 H Creatinine 1.3 H 1.5 H Glucose 176 H 119 H Albumin/Globulin Ratio 0.9 L 01/30/19 15:02 WBC 14.6 H RDW 16.0 H Gran % Lymph % (Auto) Gran # Lymph # (Auto) Band Neutrophils % 15 H Lymphocytes % 14 L Anisocytosis 1+ A Anion Gap BUN Creatinine Glucose Albumin/Globulin Ratio Meds: Medications Acetaminophen (Tylenol) 650 mg PO Q6HP PRN PRN Reason: PAIN/FEVER > 101 Hydrocodone Bitart/Acetaminophen ([place] 10/325mg) 1 tab PO Q6HP PRN PRN Reason: Pain Albuterol/Ipratropium (Duoneb) 3 ml NEB Q4HRT [facility] Last Admin: 01/31/19 06:55 Dose: 3 ml Documented by: Azithromycin (Zithromax) 250 mg PO DAILY [facility]; Protocol Stop: 02/03/19 09:01 Fenofibrate (Antara) 129 mg PO DAILY [facility] Finasteride (Proscar) 5 mg PO DAILY [facility] Furosemide (Lasix) 20 mg PO QAM [facility] Heparin Sodium (Porcine) (Heparin) 5,000 unit SQ Q12 [facility] Last Admin: 01/30/19 21:29 Dose: 5,000 unit Documented by: Lisinopril (Zestril) 5 mg PO DAILY [facility] Metformin HCl (Glucophage) 1,000 mg PO DAILY@1730 [facility]) [facility] Methocarbamol (Robaxin) 750 mg PO TID [facility] Last Admin: 01/30/19 21:20 Dose: 750 mg Documented by: Naloxone HCl (Narcan) 0.1 mg IV Q2MIN PRN PRN Reason: Opiate Reversal Omeprazole (Prilosec) 20 mg PO ACB [facility] Last Admin: 01/31/19 07:24 Dose: 20 mg Documented by: Ondansetron HCl (Zofran) 4 mg IV Q6HP PRN PRN Reason: Nausea And Vomiting Potassium Chloride (Kdur) 10 meq PO [facility] Prednisone (Prednisone) 40 mg PO [facility] Senna (Senokot) 2 tab PO HS [facility] Last Admin: 01/30/19 21:21 Dose: 2 tab Documented by: Simvastatin (Zocor) 40 mg PO [facility] Last Admin: 01/30/19 21:20 Dose: 40 mg Documented by: Sodium Chloride (Saline Flush) 10 ml IV Q8 [facility] Last Admin: 01/31/19 05:57 Dose: 10 ml Documented by: Tiotropium [place] (Spiriva) 18 mcg INH DAILY [facility] Medical - PN: A/P - Time Spent With Patient Total time spent is greater than 50% in coordination of care (as documented) at patient's floor/unit and/or counseling patient: - Narrative A/P Narrative: A/P Acute hypoxic respiratory failure Acute exacerbation of COPD Obesity Tobacco abuse cigarette smoker History of bladder cancer presently undergoing treatment with Dr. Obregon BPH Hyperlipidemia Chronic pain syndrome followed at the pain clinic Plan Oxygen to keep oxygen saturation more than 90% (patient denies any previous history of low oxygen or any recommendation of oxygen therapy) Oral steroids duo nebs and Zithromax for management of COPD Wean off oxygen as tolerated Aggressive pulmonary toilet patient has no desire to quit smoking Discharge home once oxygen saturation is more than 90% Heparin subcu for DVT prophylaxis Patient is full code Regular diet Medical - PN: Qual - VTE Deep Vein Thrombosis/Pulmonary Embolism Present on Admission: No
[2019-01-31] MEDS: FENOFIBRATE 43 MG CAPSULE PO SCH (08:25)
[2019-01-31] MEDS: LISINOPRIL 5 MG TABLET PO SCH (08:25)
[2019-01-31] MEDS: FUROSEMIDE 20 MG TABLET PO SCH (08:25)
[2019-01-31] MEDS: HEPARIN 5,000 UNIT/ML VIAL SQ SCH ×2 (08:27→20:32)
[2019-01-31] MEDS: TIOTROPIUM BROMIDE 18 MCG INHALANT INH SCH (08:29)
[2019-01-31] MEDS ORDERED: AZITHROMYCIN 250 MG TABLET PO SCH (09:00)
[2019-01-31] MEDS ORDERED: AZITHROMYCIN 250 MG TABLET PO ONE ×3 (15:36→15:55)
[2019-01-31] MEDS ORDERED: metFORMIN 500 MG TAB.XL.24H PO SCH (17:30)
[2019-01-31] MEDS: SIMVASTATIN 40 MG TABLET PO SCH (20:32)
[2019-01-31] MEDS: SENNOSIDES 1 TABLET PO SCH (20:32)
[2019-02-01] MEDS: IPRATROPIUM/ALBUTEROL 3 ML AMPUL.NEB NEB SCH ×3 (02:39→11:16)
[2019-02-01] MEDS: 0.9 % SODIUM CHLORIDE 10 ML SYRINGE IV SCH (05:21)
[2019-02-01 07:16] LABS: Basophils # (Auto) 0 K/mcL (0.0-0.3); Basophils % (Auto) 0 % (0.0-2.0); Eosinophils # (Auto) 0 K/mcL (0.0-0.7); Eosinophils % (Auto) 0 % (0.0-7.0); Hematocrit 41.8 % (41.0-55.0); Hemoglobin 13.2 g/dL (13.5-16.5); Lymphocytes # (Auto) 1.4 K/mcL (1.5-4.8); Lymphocytes % (Auto) 12.5 % (15.5-49.0); Mean Corpuscular HGB Conc 31.6 g/dL (31.0-36.0); Mean Platelet Volume 8.6 fL (7.4-10.4); Monocytes # (Auto) 0.9 K/mcL (0.1-0.9); Monocytes % (Auto) 7.5 % (1.0-12.0); Platelet Count 317 K/mcL (140-440); RBC 4.59 M/mcL (4.50-5.90); Red Cell Distribution Width 15.9 % (11.5-14.5); WBC 11.4 K/mcL (4.5-11.0)
[2019-02-01] MEDS: metFORMIN 500 MG TAB.XL.24H PO SCH (07:51)
[2019-02-01] MEDS: OMEPRAZOLE 20 MG CAPSULE PO SCH (07:51)
[2019-02-01] MEDS: POTASSIUM CHLORIDE 10 MEQ TABLET PO SCH (07:52)
[2019-02-01] MEDS: predniSONE 20 MG TABLET PO SCH (07:52)
[2019-02-01 07:53] LABS: ALT/SGPT 19 U/l (0-40); AST/SGOT 19 U/l (0-37); Albumin 3.5 gm/dL (3.2-5.2); Albumin/Globulin Ratio 1.1 (1.0-2.3); Alkaline Phosphatase 42 U/L (39-117); Bilirubin,Direct < 0.2 mg/dL (0.0-0.3); Bilirubin,Total 0.2 mg/dL (0.0-1.0); Blood Urea Nitrogen 37 mg/dl (8-23); Calcium 9.7 mg/dl (8.6-10.4); Carbon Dioxide 29 mmol/L (22-30); Chloride 100 mmol/L (96-108); Globulin 3.3 gm/dL (2.2-3.7); Glomerular Filtration Rate 68; Glucose 120 mg/dL (70-105); Lactate Dehydrogenase 196 U/L (94-250); Phosphorous 3.2 mg/dL (2.7-4.5); Triglycerides 191 mg/dl (<150); Uric Acid 7.3 mg/dL (2.5-8.0)
[2019-02-01] MEDS: FINASTERIDE 5 MG TABLET PO SCH (09:04)
[2019-02-01] MEDS: HEPARIN 5,000 UNIT/ML VIAL SQ SCH (09:04)
[2019-02-01] MEDS: AZITHROMYCIN 250 MG TABLET PO SCH (09:04)
[2019-02-01] MEDS: FENOFIBRATE 43 MG CAPSULE PO SCH (09:04)
[2019-02-01] MEDS: METHOCARBAMOL 750 MG TABLET PO SCH (09:04)
[2019-02-01] MEDS: FUROSEMIDE 20 MG TABLET PO SCH (09:05)
[2019-02-01] MEDS: TIOTROPIUM BROMIDE 18 MCG INHALANT INH SCH (09:05)
[2019-02-01] MEDS: LISINOPRIL 5 MG TABLET PO SCH (09:05)
--- NOTE | 2019-02-01 11:38 | Discharge Summary ---
Medical - DS: Prov Patient information: Note initiated : 02/01/19 at 11:36 am Service Date, if different from initiated Date: [] Patient: Subhash Mccormack 68 y/o M admitted on 01/30/19 for Shortness of breath. Chief Complaint: [] Date of admission: 01/30/19 17:25 Discharge date: 02/01/19 Primary care physician: Florentin Jenkins Consults: 01/30/19 16:41 Consult to Physician [CONS] Stat Comment: Consulting Provider: Rae Mccoy Reason For Exam: Physician to Consult Discharging clinician: Rae Mccoy Medical - DS: Meds - Discharge Medications Prescriptions: Azithromycin [Zithromax] 250 mg PO DAILY #2 tab predniSONE [Prednisone] [address] [facility] #6 tab Active and Home Medications: Home Medications Fenofibrate,Micronized [Fenofibrate] 134 mg PO DAILY 04/03/16 [History Confirmed 01/30/19 Last Taken 01/29/19 18:00] Finasteride [Proscar] 5 mg PO DAILY 04/03/16 [History Confirmed 01/30/19 Last Taken 01/29/19 18:00] Lisinopril [Zestril] 5 mg PO DAILY 04/03/16 [History Confirmed 01/30/19 Last Taken 01/29/19 18:00] Omeprazole [Prilosec] 20 mg PO ACB 04/03/16 [History Confirmed 01/30/19 Last Taken 01/29/19 18:00] Simvastatin [Zocor] 40 mg PO HS 04/03/16 [History Confirmed 01/30/19 Last Taken 01/29/19 18:00] metFORMIN [Glucophage] 500 mg PO DAILY 04/03/16 [History Confirmed 01/30/19 Last Taken 01/30/19 08:00] Methocarbamol [Robaxin] 750 mg PO TID 08/09/16 [History Confirmed 01/30/19 Last Taken 01/29/19 23:00] HYDROcodone/APAP 10/325MG [[place] 10-325Mg] 1 tab PO Q6H PRN 08/28/18 [History Confirmed 01/30/19 Last Taken 01/29/19 23:00] furosemide 20 mg tablet 20 mg PO QAM 10/20/18 [History Confirmed 01/30/19 Last Taken 01/15/19] potassium chloride ER 10 mEq capsule,extended release 10 meq PO QDAY 10/20/18 [History Confirmed 01/30/19 Last Taken 01/15/19] Albuterol Sulfate [Proair Hfa] 8.5 gm IH QID PRN 01/30/19 [History Confirmed 01/30/19 Last Taken 01/30/19 11:00] Tiotropium [place] [Spiriva] 18 mcg INH DAILY 01/30/19 [History Confirmed 01/30/19 Last Taken 01/30/19 06:00] metFORMIN HCL [Glucophage Xr] 1,000 mg PO ACS 01/30/19 [History Confirmed 01/30/19 Last Taken 01/29/19 17:00] Medical - DS: Hosp Hospital course: Mr. Mccormack is a 68 year old M with history of chronic smoking, bladder cancer presently undergoing treatment with Dr. Obregon presents to the emergency room after being sent here from the pain clinic for low oxygen levels. The patient denies any acute complaints he feels he is fine. On further pressing he admits to having some chronic cough and johnson sputum. Denies any blood in the sputum. He denies any acute worsening of shortness of breath but does admit to having some fever and chills a couple of days ago. He denies any headache changes in vision difficulty in swallowing chest pain, denies any shortness of breath to me, denies any nausea vomiting abdominal pain, has increased urinary frequency which he attributes to his bladder cancer as well as prostate issues. Denies any new joint pain skin rashes denies any bleeding episodes. On presenting to the emergency room patient was afebrile hemodynamically stable but saturating 87% on room air, he was actively wheezing, after giving treatment for COPD the patient remained hypoxic oxygen saturation 87%, which improved to 93% on 1 L. Labs show leukocytosis with a WBC count of 14.6 hemoglobin 13.8 platelets 321, creatinine is 1.5 rest of the chemistry unremarkable. Lactic acid is normal procalcitonin is 0.12. Chest x-ray is interpreted as no acute infiltrates. Given that the patient has increased oxygen needs, history of COPD and wheezing patient is being admitted to the hospital for management of acute exacerbation of COPD Patient is an active smoker, does not intend to quit, I offered him nicotine replacement therapy comes patches however he notes that he would rather go outside and smoke. Declined nicotine replacement therapy 01/31 Patient seen and examined no acute overnight events Still on oxygen, he was sitting comfortably in bed enjoying his breakfast He has no new complaints or concerns Labs are stable 02/01 Patient seen and examined, no acute overnight events, minimal wheeze on exam. Patient feels like he is at baseline. I feel that this is more or less the patient's baseline at this time. Again talked to him about smoking cessation and he declined. The patient is still hypoxic, He is 86% on room air, at rest He is 83% with ambulation on room air He is 90 to 92% on 2 L with ambulation. Will be prescribed portable oxygen and discharged home with outpatient follow-up with his PCP He will complete the dose of steroids, complete the dose of azithromycin No other changes have been done to his chronic home medication list Discharge diagnosis: copd exacerbatinon , hypoxia - Time Spent with Patient Total time spent providing and/or coordinating discharge services: Greater than 30 minutes Medical - DS: Exam - Constitutional Vitals: Vital Signs Temp Pulse Pulse Pulse Resp BP Pulse Ox 02/01/19 11:16 100 H 18 02/01/19 08:00 108 H 20 91 02/01/19 07:55 98.3 F 108 H 20 150/73 91 02/01/19 07:35 100 H 18 90 02/01/19 04:17 98.0 F 104 H 24 H 127/72 92 02/01/19 00:17 92 01/31/19 23:13 98.1 F 109 H 20 118/61 90 01/31/19 22:30 111 H 18 01/31/19 19:14 98.1 F 114 H 20 123/61 91 01/31/19 18:41 109 H 18 01/31/19 15:52 98.1 F 96 H 24 H 114/64 91 01/31/19 15:05 98 H 18 01/31/19 14:41 100 H 90 Intake and Output 01/31/19 02/01/19 02/01/19 21:59 05:59 13:59 Intake Total 1200 400 Output Total 250 600 Balance -250 600 400 Intake: Oral 1200 400 Output: Void Amount 250 600 Other: Meal Dinner Breakfast Percent of Meal Consumed 100% 100% Feeding Ability Independent Urine Appearance Clear Urine Color Bright Yellow # Bowel Movements 1 Weight 260 lb Additional comments: Constitutional; Afebrile, cooperative, alert, not in distress. Eyes- No icterus, , No periorbital swelling Ears- Ext ear normal, hearing normal to conversation. Neck- Midline trachea, supple Respiratory system: Air Entry equal on both sides, No crackles , mild wheeze. CVS- Rate rhythm regular, S1,S2 heard, no gallop, no rub. 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 Medical - DS: Data Labs on day of discharge: Labs from last 24 hours 02/01/19 02/01/19 01/31/19 04:05 04:05 11:41 WBC 11.4 H RBC 4.59 Hgb 13.2 L Hct 41.8 MCV 91.0 MCH 28.8 MCHC 31.6 RDW 15.9 H Plt Count 317 MPV 8.6 Gran % 80.0 H Lymph % (Auto) 12.5 L [place] % (Auto) 7.5 Eos % (Auto) 0 Baso % (Auto) 0 Gran # 9.1 H Lymph # (Auto) 1.4 L [place] # (Auto) 0.9 Eos # (Auto) 0 Baso # (Auto) 0 D-Dimer 0.52 H Sodium 142 Potassium 4.8 Chloride 100 Carbon Dioxide 29 Anion Gap 13.0 BUN 37 H Creatinine 1.1 GFR Calculation 68 Glucose 120 H Uric Acid 7.3 Calcium 9.7 Phosphorus 3.2 Magnesium 1.9 Total Bilirubin 0.2 Direct Bilirubin < 0.2 GGT 44 AST 19 ALT 19 Alkaline Phosphatase 42 Lactate Dehydrogenase 196 Total Protein 6.8 Albumin 3.5 Globulin 3.3 Albumin/Globulin Ratio 1.1 Triglycerides 191 H Preliminary micro results at discharge 01/30/19 15:02 Blood Culture - Preliminary Blood 01/30/19 15:09 Blood Culture - Preliminary Blood Medical - DS: A/P - Patient/Caregiver Discharge Instructions Activity: increase activity as tolerated Diet: Cardiac Additional Instructions: Wear oxygen at all times White smoking cigarettes while using oxygen Go to emergency room if worsening shortness of breath fever chest pain or any other acute concern Please take steroids for another 3 days 2 pills [40 mg] once a day in the morning with food Take azithromycin 250 mg 1 tablet once a day for 2 more days Follow-up with your PCP in 1 week - Follow up Plan Follow up with: Florentin Jenkins MD [Primary Care Provider] - Disposition: Home, Self-Care Prognosis: Fair Rehab Potential: Fair I certify that the patient requires SNF services: No Overall status at discharge: patient is progressing back to baseline Medical - DS: Qual - VTE Deep Vein Thrombosis/Pulmonary Embolism Present on Admission: No
== END 2019-02-01 13:55 | disposition home or self-care (01) ==
LOC: ED 14:43 → MEDSUR 14:43
PROVIDERS: ADMIT Internal Medicine; ATTEND Internal Medicine